=== PATIENT | female | born 1960 | race Caucasian/White ===

== ENCOUNTER 2019-10-16 12:19 | Inpatient (IN) ==
--- NOTE | 2019-10-16 13:02 | Diag Imaging Result Doc PS360 ---
EXAM: CHEST-1 VIEW 10/16/2019 HISTORY: sepsis r/o TECHNIQUE: Erect AP portable at 1253 COMMENT: The patient is rotated slightly to the right. There is some questionable opacity over the lower portion of the right upper lobe which is probably related to overlying skeletal elements. The Port-A-Cath which was present on 03/19/2011 is no longer present. IMPRESSION: Questionable atelectasis or pneumonia in the right upper lobe. Electronically signed by Cem Gaston 10/16/2019 1:00 PM
[2019-10-16 13:21] LABS: URINE SOURCE CATH
[2019-10-16 13:23] LABS: BASO# 0.01 X1000 (0.0-0.2); BASO% 0.1 % (0.0-0.8); EOS# 0.08 X1000 (0.0-0.7); EOS% 0.6 % (0.0-10.0); HEMATOCRIT 42.7 % (37.0-47.0); HEMOGLOBIN 13.1 g/dL (12.0-16.0); IMM GRAN# 0.03 X1000 (0.0-0.04); IMM GRAN% 0.2 % (0.0-0.5); LYMPH% 11.2 % (20.5-51.1); MCH 28.7 PG (27-31); MCHC 30.7 g/dL (33-37); MCV 93.4 FL (81-99); MONO# 0.77 X1000 (0.11-0.59); MONO% 5.8 % (1.7-9.3); MPV 9.8 FL (7.4-10.4); NEUT% 82.1 % (42.2-75.2); PLT 414 X1000 (130-400); RBC 4.57 XMIL (4.2-5.4); RDW 14.2 % (11.5-14.5); WBC 13.39 X1000 (4.8-10.8)
[2019-10-16 13:26] LABS: BILIRUBIN URINE NEGATIVE (NEGATIVE); BLOOD URINE NEGATIVE (NEGATIVE); COLOR YELLOW; GLUCOSE URINE NEGATIVE (NEGATIVE); KETONE URINE NEGATIVE (NEGATIVE); LEUKOCYTES URINE NEGATIVE (NEGATIVE); NITRITE URINE NEGATIVE (NEGATIVE); PROTEIN URINE TRACE mg/dL (NEGATIVE); SP GRAVITY URINE 1.023; TURBIDITY URINE HAZY (CLEAR); UROBILINOGEN URINE NORMAL (NORMAL)
[2019-10-16 13:32] LABS: UR EPITHELIAL CELLS <10 /HPF (<10); URINE BACTERIA NEGATIVE /HPF; URINE CASTS NONE SEEN; URINE CRYSTALS CA OXALATE PRESENT; URINE RBC <10 /HPF (<10); URINE WBC <10 /HPF (<10); URINE YEAST NONE SEEN
[2019-10-16 13:33] LABS: URINE SMALL ROUND CELLS NONE SEEN
[2019-10-16 13:35] LABS: INR 0.95; PROTIME 13.2 Seconds (11.0-16.0)
[2019-10-16 13:36] LABS: PTT 32.7 Seconds (22.3-41.8)
[2019-10-16 13:40] LABS: AGAP 15; ALBUMIN 4.3 g/dL (3.5-5.0); ALKALINE PHOSPHATASE 118 U/L (32-104); BUN 15 mg/dL (8-22); CALCIUM 9.7 mg/dL (8.8-10.2); CHLORIDE 104 mmol/L (98-107); CK PROFILE 48 U/L (24-173); COSMO 284; CREATININE 0.6 mg/dL (0.5-0.9); ESTIMATED GFR > 60; GLUCOSE 124 mg/dL (70-104); GOT 16 U/L (10-30); GPT 11 U/L (10-36); POTASSIUM 5.1 mmol/L (3.5-5.1); SODIUM 141 mmol/L (136-145); TCO2 22 mmol/L (25-35); TOTAL PROTEIN 6.7 g/dL (6.3-8.3)
[2019-10-16] MEDS ORDERED: ZITHROMAX PO ONE (14:20)
[2019-10-16] MEDS ORDERED: ROCEPHIN 1 GM in NS 50 ML IV ONE (14:20)
[2019-10-16] MEDS ORDERED: MORPHINE IV ONE (14:38)
[2019-10-16] MEDS ORDERED: ZOFRAN IV ONE (14:38)
--- NOTE | 2019-10-16 15:04 | Diag Imaging Result Doc PS360 ---
EXAM: CT ABD/PELVIS W/IV CONT ONLY - 10/16/2019 HISTORY: INCARCERATED HERNIA? TECHNIQUE: CT abdomen/pelvis with intravenous contrast COMPARISON: 10/03/2018 FINDINGS: There are postsurgical changes of distal colectomy with left midabdomen colostomy. There is a lower anterior abdominal wall hernia to the right of midline. This area now contains a small portion of transverse colon. The colon is mildly distended proximal and distal to the hernia There is scarring with apparent chronic small gas collection anterior to the lower sacrum/coccyx. There is apparent tethering of small bowel loops towards the presacral/coccygeal scarring. There is a segment of small bowel at the left upper pelvis which is nondistended, there is distended small bowel proximal and distal to this. The distal most small bowel appears to be nondistended. These findings suggest distal small bowel obstruction, possibly related to scarring/adhesions at the presacral/coccygeal region. There is no free air or substantial free fluid identified. There is mild fatty infiltration of liver. There is no focal liver lesion identified. There are no substantial abnormalities of the spleen, adrenal glands, pancreas identified. There are no calcified gallstones or pericholecystic inflammation identified. There are no substantially enlarged lymph nodes identified. The bilateral kidneys enhance homogeneously except for small cysts. There is no hydronephrosis. There is a suprapubic urinary bladder catheter. The urinary bladder lumen is largely collapsed. IMPRESSION: Postsurgical changes of distal colectomy, with left mid abdominal colostomy. Anterior abdominal wall hernia at the midabdomen at the right of midline. This contains a small portion of transverse colon. There is mild distention of colon proximal and distal to the hernia. Multiple dilated small bowel loops suspicious for distal small bowel obstruction. There is apparent tethering of small bowel loops at area of scarring anterior to the lower sacrum/coccyx. Although a discrete transition point is not apparent, the distal small bowel obstruction could relate to scarring/adhesions in this area. This exam was performed using automated exposure control, adjustment of mA or kV according to patient size, and/or use of iterative reconstruction technique. Electronically signed by Rene Hyde 10/16/2019 3:02 PM
--- NOTE | 2019-10-16 16:18 | PROVIDER DOCUMENTATION ---
This chart was entered by Robyn Harley Scribe, acting as scribe for Steven Olguin MD. HPI-Abdominal Pain/GI Problem - General Chief Complaint: Abdominal Pain Stated Complaint: abd pain Time Seen by Provider: 10/16/19 12:39 Source: patient, family, EMS (first response) Allergies/Adverse Reactions: Patient Allergies Allergy/AdvReac Type Severity Reaction Status Date / Time ether Allergy Severe hallucinati Verified 12/22/18 19:21 ons hydrocodone Allergy NAUSEA/VOMI Verified 12/22/18 19:21 [From Lorcet (hydrocodone)] TING hydromorphone [From Dilaudid] Allergy ITCHING Verified 12/22/18 19:21 silver sulfadiazine Allergy ITCHING Verified 12/22/18 19:21 [From Silvadene] sulfasalazine Allergy colitis Verified 12/22/18 19:21 etodolac AdvReac RENAL Verified 12/22/18 19:21 FAILURE methotrexate AdvReac elevated Verified 12/22/18 19:21 liver enzymes tolmetin AdvReac RENAL Verified 12/22/18 19:21 FAILURE Home Medications: Home Medication List Medication Instructions Recorded Confirmed Last Taken Type Acetaminophen/Diphenhydramine 2 each PO HS 10/17/17 04/24/19 10/22/18 18:30 H istory [Tylenol Pm] 2 Azathioprine 50 mg PO DAILY 10/17/17 04/24/19 10/23/18 07:00 History 100 Calcium Carbonate/Vit D3 [Caltrate 1 each PO DAILY 10/17/17 04/24/19 10/23/18 07:00 History 600 + D] 1 Duloxetine HCl 60 mg PO HS 10/17/17 04/24/19 10/22/18 19:00 History 60 Ibuprofen 2 tab PO PRN PRN 10/17/17 04/24/19 10/22/18 19:00 History 2 Montelukast [Singulair] 10 mg PO DAILY 10/17/17 04/24/19 10/23/18 07:00 History 10 Multivitamin with Minerals 1 each PO DAILY 10/17/17 04/24/19 10/22/18 19:00 History [Myvitalife] 1 Polyethylene Glycol 3350 [Miralax] 17 gm PO PRN PRN 10/17/17 04/24/1910/17/18 19:30 History 17 Sucralfate 1 gm PO PRN PRN 10/17/17 04/24/19 Unknown History Vitamin A 8,000 unit PO QAM 10/17/17 04/24/19 10/18/17 06:30 History 8000 Denosumab [Prolia] 60 mg SQ DIRECTED 10/21/18 04/24/19 Unknown History Hydrocodone/Acetaminophen [[place] 1 each PO PRN PRN 10/21/18 04/24/19 10/23/18 07:00 History 5-325 Tablet] 1 Oxybutynin [Ditropan] 5 mg PO BID 10/21/18 04/24/19 10/23/18 07:00 History 5 Vitamin B Complex 1 each PO DAILY 10/21/18 04/24/19 10/23/18 07:00 History 1 Bimatoprost [Lumigan] 1 drp BOTH EYES HS 04/24/19 04/24/19 Unknown History [place]-3 Fatty Acids/Fish Oil [Fish 1 cap PO DAILY 04/24/19 04/24/19 Unknown History Oil 1,000 mg Capsule] - History of Present Illness-ABD Nature of Presenting Problems: 59 yowf presents to the ed with c/o abdominal pain midline next to hernia. pt has nausea but denies vomiting and subjective fever. pt on exam is pleasant and appears to be in no distress. pt has hx of rectal cancer and has colostomy Abdominal Pain Onset Location: reports: periumbilical (midline) Pain Radiation: reports: no radiation Quality of Pain: reports: sharp Severity in ED: reports: moderate Onset/Duration: reports: this morning Timing: reports: still present, intermittent Activities at Onset: reports: light activity Exposure to sick contacts?: No Modifying Factors: worse with: palpation Associated Symptoms: reports: fever/chills (subjective), nausea. denies: back/neck pain, chest pain, cough, diarrhea, vomiting Last BM: other (colostomy) # of Vomiting Episodes: 0 Emesis Description: reports: none Bruising or Bleeding Gums?: No Similar Symptoms Previously?: Yes Recently seen or treated by another doctor?: No Review of Systems - Adult - REVIEW OF SYSTEMS - ADULT Constitutional: reports: see HPI, fever (subjective) Eyes: reports: no symptoms reported Ears, Nose, Mouth & Throat: reports: no symptoms reported Cardiovascular: denies: chest pain, palpitations Respiratory: denies: cough, pleurisy, shortness of breath, wheezing Gastrointestinal: reports: see HPI, abdominal pain, nausea. denies: diarrhea, vomiting Genitourinary: reports: see HPI, other (has cath) Musculoskeletal: denies: back pain, neck pain Integumentary: reports: no symptoms reported Neurological: reports: no symptoms reported Psychiatric: reports: no symptoms reported Endocrine: reports: no symptoms reported Hematologic/Lymphatic: reports: no symptoms reported Allergic/Immunologic: reports: no symptoms reported All Other Systems: Reviewed and Negative Past History - Adult - PAST MEDICAL HISTORY-ADULT Review of Records: reports: Old Records Reviewed, Nursing Assessment Review, Medications Reviewed, Social history reviewed & non-contributory. Major Childhood Illnesses: reports: denies history Cardiovascular: reports: denies history Respiratory: reports: denies history Gastrointestinal: reports: denies history Obstetrical/Gynecological: reports: denies history Genitourinary: reports: denies history Musculoskeletal: reports: arthritis, fibromyalgia Neurological: reports: denies history Psychiatric: reports: denies history Endocrine/Immune: reports: immunosuppression Other Conditions: reports: blindness - PRIOR SURGERIES/PROCEDURES Surgical/Procedure History: reports: other (colostomy) - IMMUNIZATION STATUS Childhood Immunizations: See Nurse Assessment Flu Vaccine: See Nurse Assessment - FAMILY HISTORY Family History: reviewed, not pertinent - SOCIAL HISTORY Smoking: quit greater than 1 year Substance Use: denies Living Situation: family Physical Exam-General - PHYSICAL EXAM-ADULT Initial Vital Signs Reviewed: Yes - CONSTITUTIONAL General Appearance: appears well, alert, no apparent distress (nontoxic in appearance), obese - EYES Eyes: pink conjunctivae, other (pt is blind pupils are dilated) - HEAD, EARS, NOSE, MOUTH & THROAT HENMT: moist mucous membranes - NECK Neck: non-tender, full range of motion, supple, normal inspection - RESPIRATORY Respiratory: chest non-tender, lungs clear, normal breath sounds - CARDIOVASCULAR Cardiovascular: normal peripheral pulses, regular rate, rhythm - CHEST (BREASTS) Chest/Breast: deferred - GASTROINTESTINAL (ABDOMEN) Abdominal Exam: normal bowel sounds, soft, tenderness (midline to umbilical region), hernia (rt to midline), other (colostomy left of midline). negative: distended, rigid, rebound - GENITOURINARY Female Genitalia/Pelvic Exam: deferred, other (has cath in place) Rectal Exam: deferred Hemoccult Exam: deferred - LYMPHATIC Lymphatic: no adenopathy - MUSCULOSKELETAL Back Exam: no CVA tenderness, no vertebral tenderness Extremity: normal range of motion, non-tender, normal inspection, normal capillary refill - SKIN Integumentary: normal color, normal turgor, warm/dry - NEUROLOGIC Neurologic: grossly normal - PSYCHIATRIC Psych/Mental Status: normal mood/affect, oriented x 3 Progress - PLAN OF CARE/RESULTS Progress/Plan/Lab Results: Vital Signs - 8 hr 10/16/19 12:21 Temperature 97.7 F Pulse Rate 97 H Respiratory Rate 22 Blood Pressure 152/76 O2 Sat by Pulse Oximetry 97 Orders Category Date Time Status Cardiac Monitoring DIRECTED Care 10/16/19 12:39 Active IV Insertion ORDERED Care 10/16/19 12:39 Completed Notify MD of + Sepsis Screen NOW Care 10/16/19 12:39 Active Notify Physician As Ordered Care 10/16/19 12:39 Active CHEST-1 VIEW [RAD] Stat Exams 10/16/19 12:39 Completed BLOOD CULTURE [BLDCUL] Stat Lab 10/16/19 12:48 Ordered CBC WITH DIFF [HEME] Stat Lab 10/16/19 12:48 Ordered CK PROFILE [SP CHEM] Stat Lab 10/16/19 12:48 Ordered COMPREHENSIVE METABOLIC PANEL [CHEM] Stat Lab 10/16/19 12:48 Ordered LACTATE, PLASMA [CHEM] Lab 10/16/19 12:53 Ordered LACTATE, PLASMA [CHEM] Lab 10/16/19 15:45 Uncollected LACTATE, PLASMA [CHEM] Lab 10/16/19 18:45 Uncollected PROTIME WITH INR [COAG] Stat Lab 10/16/19 12:48 Ordered PTT [COAG] Stat Lab 10/16/19 12:48 Ordered TROPONIN T HIGH SENSITIVITY Stat Lab 10/16/19 12:48 Ordered URINALYSIS W/POSS RFLX CULT [URINALYSIS] Stat Lab 10/16/19 12:54 Ordered Oxygen Device Stat Oth 10/16/19 12:39 Active Result Diagrams: 10/16/19 12:55 10/16/19 12:55 - REASSESSMENT Reassessment #1 Time Reassessed: 13:05 Status: unchanged ( at bedside) Reassessment #2 Time Reassessed: 15:40 Status: improving (pt is resting in bed) Reassessment #3 Time Reassessed: 16:15 Status: unchanged (ng ordered. lactate , cultures ,rocephin ordered. 1st case of total blidness due Cancer, Associated Retinopathy that i have seen.) - XRAY 1 XRAY: Bilateral XRAY Study: Chest Impression: See EMR Report (EXAM: CHEST-1 VIEW 10/16/2019 HISTORY: sepsis r/o TECHNIQUE: Erect AP portable at 1253 COMMENT: The patient is rotated slightly to the right. There is some questionable opacity over the lower portion of the right upper lobe which is probably related to overlying skeletal elements. The Port-A-Cath which was present on 03/19/2011 is no longer present. IMPRESSION: Questionable atelectasis or pneumonia in the right upper lobe. Electronically signed by Cem Gaston 10/16/2019 1:00 PM 10/16/19 1300 Interpreting Physician: Cem Gaston MD Dictated Date/Time: 10/16/19 1259 cc: Steven Olguin MD; None,PCP) - CT/MRI 1 CT Study: Abdomen, Pelvis Impression: See EMR Report (EXAM: CT ABD/PELVIS W/IV CONT ONLY - 10/16/2019 HISTORY: INCARCERATED HERNIA? TECHNIQUE: CT abdomen/pelvis with intravenous contrast COMPARISON: 10/03/2018 FINDINGS: There are postsurgical changes of distal colectomy with left midabdomen colostomy. There is a lower anterior abdominal wall hernia to the right of midline. This area now contains a small portion of transverse colon. The colon is mildly distended proximal and distal to the hernia There is scarring with apparent chronic small gas collection anterior to the lower sacrum/coccyx. There is apparent tethering of small bowel loops towards the presacral/coccygeal scarring. There is a segment of small bowel at the left upper pelvis which is nondistended, there is distended small bowel proximal and distal to this. The distal most small bowel appears to be nondistended. These findings suggest distal small bowel obstruction, possibly related to scarring/adhesions at the presacral/coccygeal region. There is no free air or substantial free fluid identified. There is mild fatty infiltration of liver. There is no focal liver lesion identified. There are no substantial abnormalities of the spleen, adrenal glands, pancreas identified. There are no calcified gallstones or pericholecystic inflammation identified. There are no substantially enlarged lymph nodes identified. The bilateral kidneys enhance homogeneously except for small cysts. There is no hydronephrosis . There is a suprapubic urinary bladder catheter. The urinary bladder lumen is largely collapsed. IMPRESSION: Postsurgical changes of distal colectomy, with left mid abdominal colostomy. Anterior abdominal wall hernia at the midabdomen at the right of midline. This contains a small portion of transverse colon. There is mild distention of colon proximal and distal to the hernia. Multiple dilated small bowel loops suspicious for distal small bowel obstruction. There is apparent tethering of small bowel loops at area of scarring anterior to the lower sacrum/coccyx. Although a discrete transition point is not apparent, the distal small bowel obstruction could relate to scarring/adhesions in this area. This exam was performed using automated exposure control, adjustment of mA or kV according to patient size, and/or use of iterative reconstruction technique. Electronically signed by Rene Hyde 10/16/2019 3:02 PM 10/16/19 1502 Interpreting Physician: Rene Hyde MD Dictated Date/Time: 10/16/19 1441 cc: Steven Olguin MD; None,PCP) - CONSULTS/PCP/HOSPITALIST Notification #1 *Consult/PCP/Hospitalist*: sx dr gomez Time Discussed: 15:57 Reason/Comments: phone consult #2 Consult: hospitalist dr fishman Time Discussed: 16:03 (dr fishman will handle admission at [facility]) Consult Disposition: Will see in ED, Admit Departure - Departure Date of Disposition Decision: 10/16/19 Time of Disposition Decision: 16:14 DIAGNOSIS: SBO (small bowel obstruction), Hernia of anterior abdominal wall, Pneumonia Disposition: ADMITTED INPATIENT 09 Certified Medical Emergency: Emergent Condition: Fair Referrals and Follow-Ups: None,PCP [Primary Care Provider] - - Critical Care Note This patient required my direct & personal management of CC.: Yes Total Time (mins): 32 Critical Care Statement: This patient required my direct personal management to treat or rule out processes, the absence of which, could potentiallly result in sudden, clinically significant life or limb threatening deterioration. Attestation - Physician/ DIPTI Attestation Patient care was provided by Advanced Practice Provider:: No The physician spent face to face time with patient:: Yes Advanced Practice Provider documentation review:: Supervising physician onsite and consulted in the evaluation and care of this patient. The physician did have a face to face encounter with the patient. This chart was documented by the indicated scribe, (Robyn Harley Scribe) and accurately reflects the services I performed and decisions made by me, Steven Olguin MD, as attested by the provider's signature.
[2019-10-16] MEDS: PROTONIX IV SCH (18:15)
[2019-10-16] MEDS: ZOFRAN IV PRN (20:26)
[2019-10-16] MEDS: ROCEPHIN 1 GM in NS 50 ML IV SCH (20:26)
--- NOTE | 2019-10-16 21:09 | Diag Imaging Result Doc PS360 ---
EXAM: CHEST-PORTABLE HISTORY: Pneumonia TECHNIQUE: Single view COMPARISON: 12:53 PM FINDINGS: The lungs are well expanded. The heart is not enlarged. The vessels are not distended. There are no infiltrates. No effusion identified. IMPRESSION: No definite abnormality. Follow-up PA and lateral recommended. Electronically signed by Bola Jon 10/16/2019 9:07 PM
[2019-10-16] MEDS: NS 1,000 ML IV SCH (22:32)
--- NOTE | 2019-10-17 01:04 | HISTORY AND PHYSICAL ---
PRIMARY CARE PHYSICIAN: Dr. Rey Ramirez. CHIEF COMPLAINT: Abdominal pain. HISTORY OF PRESENT ILLNESS: Ms Traylor is a 59-year-old, female with past medical history of rectal cancer status post colostomy and anal fissure repair, vaginal- anal fistula with suprapubic placement, cancer associated retinopathy syndrome, hypothyroidism, GERD, RA, fibromyalgia, skin cancer, anemia. The patient does present to the hospital today with complaints of mid abdominal pain, weakness, nausea, lethargy, malaise, chills, fever of 99 degrees, cough, congestion, dizziness, headache, rhinorrhea and decreased intake for the past few days. The patient states she did have a bladder infection greater than a week ago. She was being treated with Cipro by her rolling chair pusher, Dr. Rey Ramirez. He did change it to Macrobid and she did complete her dosage of her medication. She also did have some dental work where she had some of her teeth removed and was treated with Keflex. The patient does deny any weight change, excessive thirst, chest pain, palpitations, orthopnea, PND, leg edema, dyspnea, vomiting, melena, hematopoiesis, diarrhea or constipation, dysuria, hematuria, vertigo, syncope, or any other pertinent symptoms at this time. REVIEW OF SYSTEMS: A 10-point review of systems has been obtained and all are negative, except what is stated above in HPI. PAST MEDICAL HISTORY: 1. Rectal cancer with colostomy and anal fissure repair. 2. Vaginal-anal fistula with suprapubic cath placement. 3. Anemia. 4. Cancerous associated retinopathy. 5. Hypothyroidism. 6. GERD. 7. Fibromyalgia. 8. Rheumatoid arthritis. 9. Skin cancer. PAST SURGICAL HISTORY: Tonsillectomy, hysterectomy, tubal ligation, cataracts, anal fissure repair, colostomy placement, suprapubic placement, hernia repair, varicose vein surgery, fistula repair. FAMILY HISTORY: Mom had small-cell lung cancer and is . She also had diabetes, hypothyroidism, glaucoma and cataracts. Sister has hypothyroidism. 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 She does have to have a caregiver live with her. She quit smoking 3 years ago. She quit drinking greater than 40 years ago. She denies any illicit drug use. ALLERGIES: Ether, hydrocodone, hydromorphone, Silvadene, sulfasalazine, etodolac, methotrexate, tolmetin. HOME MEDICATIONS: Home medication reconciliation has not been performed in the computer. PHYSICAL EXAMINATION: VITAL SIGNS: Temperature 97.7 degrees, pulse rate 97, respiratory rate 22, blood pressure 152/76, O2 saturation 97% on room air. GENERAL: This is a 59-year-old female. She is lying in ER stretcher. She is well nourished, well developed. She is in no acute distress. HEENT: Atraumatic, normocephalic. Pupils are equal. Mucous membranes are dry. NECK: Supple. No lymphadenopathy. Trachea is midline. No JVD. CARDIOVASCULAR: Regular rate and rhythm. No murmurs, gallops, or rubs appreciated. RESPIRATORY: Lung sounds clear. Equal chest excursion. Respirations are nonlabored. No accessory muscle usage. ABDOMEN: Soft. It is tender to palpation. It is nondistended. Bowel sounds present x4. GENITOURINARY: There is a suprapubic catheter present. It is draining clear yellow urine output. NEUROLOGIC: Patient is awake, alert, oriented, able to follow all commands appropriately. MUSCULOSKELETAL: Full distal strength noted. No abnormalities, no deformities. EXTREMITIES: No clubbing, no cyanosis, no edema. DP and PT pulses are present and palpable. SKIN: Warm, dry, and intact. No rashes. No bruises. No diaphoresis. LABS/DIAGNOSTICS: White blood cell count 13.39, hemoglobin 13.1, hematocrit 42.7, platelet count 414,000. PT 13.2, INR 0.95, PTT 32.7. Sodium 141, potassium 5.1, CO2 of 22, anion gap 15, BUN 15, creatinine 0.6, estimated GFR is greater than 60. Glucose 124. Troponin T 9. Plasma lactate 0.6. Urinalysis essentially negative. Chest x-ray shows pneumonia in the right left upper lobe. CT of the abdomen and pelvis shows an anterior abdominal wall hernia at the mid abdomen at the right of midline, this contains a small portion of transverse colon. There is mild distention of the colon proximal and distal to the hernia. Multiple dilated small bowel loops suspicious for distal small bowel obstruction. There is an apparent of small bowel loops at area of scarring anterior to the lower sacrum and coccyx, although a discrete transition point is not apparent, the distal small- bowel obstruction can relate to scarring adhesions in this area. ASSESSMENT AND PLAN: 1. Right upper lobe pneumonia. We are going to transfer the patient to [facility]. We will admit her to the medical floor. We will place her on IV fluid hydration. We will place her on IV Rocephin and IV azithromycin. Blood cultures have been obtained. We will await those results. We will repeat chest x-ray in the morning. 2. Small-bowel obstruction with incarcerated hernia. We have consulted surgery. Dr. Fuchs was notified and spoke to in the ER. He will see the patient on the medical floor at [facility]. He recommended placing an NG tube to low intermittent. I have ordered this. We will hold the patient NPO. I will provide her with IV Protonix 40 mg IV q.24 hours. I will provide her with IV fluid hydration. I have ordered IV Zofran for her nausea. I will place her on strict bed rest. Do vital signs q.4 hours. 3. Rectal cancer with colostomy and suprapubic catheterization from fistula. Aware. 4. Cancer-associated retinopathy syndrome. Aware. 5. Hyperthyroidism. We will resume home medications when appropriate. 6. Fibromyalgia. Will resume home medications when able. 7. Rheumatoid arthritis, aware. 8. Gastroesophageal reflux disease. I have ordered Protonix IV q.24 hours. 9. Deep venous thrombosis prophylaxis. I have ordered SCDs. Dictated by BELGICA Neely for Valentino Ruiz MD cc: MD Rey Mccormack MD Gregory S. Cheatham, MD Jason R. Seale, MD Clement Okinedo, MD MTDD
--- NOTE | 2019-10-17 03:58 | HISTORY AND PHYSICAL ---
Patient presented to the hospital with abdominal pain. She does have a history of cancer. CT demonstrates multiple dilated loops of bowel suspicious for a distal small-bowel obstruction. Chest x-ray with likely pneumonia in the right upper lobe. We are going to admit to the hospital, place her on antibiotics. General Surgery has been notified. I would prefer her to have an NG tube, but the patient so far has refused this. We will continue to keep her N.P.O.,transfer her to [facility], consult Surgery and will follow. cc: Valentino Ruiz MD
[2019-10-17] MEDS: ZOFRAN IV PRN ×2 (05:45→12:30)
[2019-10-17] MEDS ORDERED: OFIRMEV 1000 MG/ISOTONIC SOLN 1,000 MG/100 ML BOTTLE IV ONE (05:56)
[2019-10-17 06:37] LABS: BASO# 0.01 X1000 (0.0-0.2); BASO% 0.1 % (0.0-0.8); EOS# 0.04 X1000 (0.0-0.7); EOS% 0.4 % (0.0-10.0); HEMATOCRIT 42.4 % (37.0-47.0); HEMOGLOBIN 12.9 g/dL (12.0-16.0); IMM GRAN# 0.02 X1000 (0.0-0.04); IMM GRAN% 0.2 % (0.0-0.5); LYMPH# 1.95 X1000 (1.2-3.4); LYMPH% 20.9 % (20.5-51.1); MCH 28.7 PG (27-31); MCHC 30.4 g/dL (33-37); MCV 94.4 FL (81-99); MONO# 0.92 X1000 (0.11-0.59); MONO% 9.8 % (1.7-9.3); MPV 9.8 FL (7.4-10.4); NEUT# 6.41 X1000 (1.4-6.5); NEUT% 68.6 % (42.2-75.2); PLT 419 X1000 (130-400); RBC 4.49 XMIL (4.2-5.4); RDW 14.3 % (11.5-14.5); WBC 9.35 X1000 (4.8-10.8)
[2019-10-17 07:03] LABS: AGAP 11; BUN 14 mg/dL (8-22); CALCIUM 9.2 mg/dL (8.8-10.2); CHLORIDE 105 mmol/L (98-107); COSMO 278; CREATININE 0.6 mg/dL (0.5-0.9); ESTIMATED GFR > 60; GLUCOSE 104 mg/dL (70-104); POTASSIUM 4.5 mmol/L (3.5-5.1); SODIUM 139 mmol/L (136-145); TCO2 23 mmol/L (25-35)
[2019-10-17] MEDS: NS 1,000 ML IV SCH (07:54)
[2019-10-17] MEDS: ZITHROMAX 500 MG/NS 500 MG/250 ML IVPB IV SCH (11:28)
[2019-10-17] MEDS ORDERED: OFIRMEV 1000 MG/ISOTONIC SOLN 1,000 MG/100 ML BOTTLE IV PRN (12:39)
[2019-10-17] MEDS ORDERED: SODIUM CHLORIDE 0.9% INJ PRN (12:40)
[2019-10-17] MEDS ORDERED: PHENERGAN IV PRN (12:40)
[2019-10-17] MEDS ORDERED: ATIVAN IV ONE (13:12)
[2019-10-17] MEDS: BENADRYL IV PRN (14:51)
[2019-10-17] MEDS: ROCEPHIN 1 GM in NS 50 ML IV SCH (14:52)
--- NOTE | 2019-10-17 16:09 | Diag Imaging Result Doc PS360 ---
CHEST-PORTABLE - 10/17/2019 INDICATION: NG tube placement COMPARISON: 10/16/2019 FINDINGS: There is a nasogastric tube in good position in the stomach. The lungs are fairly clear and the heart size is normal. IMPRESSION: Nasogastric tube in good position the stomach. Electronically signed by Earl Mueller 10/17/2019 4:07 PM
[2019-10-17] MEDS: PROTONIX IV SCH (18:19)
[2019-10-17] MEDS: SODIUM CHLORIDE 0.9% INJ SCH (18:19)
--- NOTE | 2019-10-17 20:00 | PROGRESS NOTE ---
DATE: 10/17/2019 SUBJECTIVE: This morning Ms. Traylor refers to be doing well. She continues saying she has been extremely nauseated, and she also has abdominal discomfort. Per the nursing account, she has vomited multiple times, and that they all look fecaloid. During my encounter, Dr. Lima, the surgeon, actually joined me, and both of us evaluated Ms. Traylor. OBJECTIVE: Vital signs: Blood pressure is 157/86, pulse 95, respirations 16, temperature 97.4. General: Ms. Traylor is a 59-year-old elderly female. She is in bed in no distress. HEENT: Mucosa is pink, slightly dry. Anicteric. Acyanotic. Neck: Supple. No JVD. Chest: Good air entry bilaterally. There are no crepitations or rhonchi. Cardiovascular: Regular rate and rhythm. GI: Abdomen is soft. There is some tenderness in the mid epigastrium where there is a hernia defect. There is also an infraumbilical surgical scar from previous surgery. There is a left-sided colostomy in the back which has fecal material. According to Ms. Traylor, the colostomy output has remarkably reduced. Bowel sounds are present and slightly hyperactive. Extremities: No pedal edema. 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 There is no focal deficit. The patient is bilaterally legally blind. : There is a suprapubic catheter noted. LABORATORY DATA: WBCs 9.35, hemoglobin 12.9, platelet count of 419. Chemistry is also reviewed and is for the most part unremarkable. So far, blood cultures are pending. DIAGNOSTIC STUDIES: 1. A chest x-ray: Questionable atelectasis or pneumonia in the right lower lobe. 2. A CT scan of the abdomen and pelvis showed an anterior abdominal wall hernia at the mid abdomen at the right of the midline that contains a portion of transverse colon. There are multiple dilated small bowel loops suspicious of distal small-bowel obstruction. ASSESSMENT: 1. Intractable nausea and vomiting secondary to small bowel obstruction. 2. Mid abdomen incarcerated hernia. This seems to be easily reducible. 3. Right lower lobe atelectasis versus pneumonia. Patient has been started on antimicrobial coverage. 4. Clinical volume depletion. Will continue with fluids. 5. History of rectal cancer with multiple complications in the past. 6. Status post suprapubic catheterization. 7. Legal bilateral blindness, presumably associated with cancer treatment. 8. History of rheumatoid arthritis. The patient is on azathioprine and pulse doses of steroids. 9. Hypothyroidism. Will continue with levothyroxine. cc: Kenneth Jeffers MD MTDD
[2019-10-17] MEDS: MORPHINE IV PRN (21:20)
--- NOTE | 2019-10-17 22:24 | GENERAL SURGERY CONSULTATION ---
DATE: 10/17/2019 REASON FOR CONSULTATION: Bowel obstruction. CHIEF COMPLAINT: Nausea, vomiting, abdominal discomfort. HISTORY OF PRESENT ILLNESS: A 59-year-old female with complicated history. 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 Apparently, she underwent some form of transanal excision at an outside hospital that resulted in rectal and anal necrosis, that resulted in abdominoperineal resection and plastic surgery closure of the perineal wound. She has had a chronic longstanding wound related to this. 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 She has also had cancer associated blindness of late. She has rheumatoid arthritis as well. She is on immunosuppressant. In the last 24 hours, or really last week, apparently she has developed colicky abdominal discomfort, nausea, and vomiting that became more severe with apparent feculent emesis, and she came into the ER where a CT scan was obtained that showed a midline transverse colon containing ventral hernia, as well as a transition point in the small bowel down toward the pelvis. She was admitted. There has been some difficulty placing a nasogastric tube. MEDICAL HISTORY: As noted in her HPI, with addition of tobacco use, hypertension, and I believe diabetes. SURGICAL HISTORY: As noted in her history, with the addition of bilateral lower extremity RFA. SOCIAL HISTORY: She does smoke. Drinks occasionally. She has attentive family. FAMILY HISTORY: Reviewed and noncontributory. REVIEW OF SYSTEMS: A 10 point review of systems is negative other than what is mentioned in HPI. PHYSICAL EXAMINATION: Vital Signs: She is afebrile. Pulse in the 90s. Blood pressure 157/86. Oxygen saturation 94%. General: She is alert, in no acute distress. HEENT: No scleral icterus. No cervical mass. Cardiovascular: Normal rate. Pulmonary: No increased work of breathing. Abdomen: Soft. There is a reducible incisional hernia with approximately a 3 to 4 cm palpable defect, with no incarcerated viscera and no skin changes. Left lower quadrant ostomy is in place. Integument: Warm and dry. Psychiatric: Appropriate affect. Neurologic: She does have blindness. Peripheral vascular: Trace lower extremity edema. LABORATORY DATA: White count is 9, hematocrit is 42. Creatinine is 0.6. I reviewed her LFTs. They are normal. Lactate was normal. Urinalysis shows trace protein, but no nitrites. I have reviewed her chest x-ray. It shows possible pneumonia, and a CT scan. ASSESSMENT AND PLAN: A 59-year-old female with bowel obstruction. This seems to be unrelated to her hernia, which is reducible and colon containing. Her ostomy is functioning. I have recommended nasogastric tube decompression given her ongoing emesis, and serial abdominal examinations. Will follow along. I have recommended abdominal binder with pressure over the hernia, although this is not the source of obstruction and is reducible. She is recently status post high-dose steroids with plans to start back later this summer for her blindness. cc: Zach Lima MD
[2019-10-18] MEDS: MORPHINE IV PRN ×3 (01:48→21:59)
[2019-10-18 07:35] LABS: HEMATOCRIT 38.4 % (37.0-47.0); HEMOGLOBIN 11.9 g/dL (12.0-16.0); MCH 29.6 PG (27-31); MCV 95.5 FL (81-99); RBC 4.02 XMIL (4.2-5.4); RDW 14.7 % (11.5-14.5); WBC 6.92 X1000 (4.8-10.8)
[2019-10-18 08:10] LABS: AGAP 14; ALBUMIN 3.4 g/dL (3.5-5.0); BUN 15 mg/dL (8-22); CALCIUM 9.3 mg/dL (8.8-10.2); CHLORIDE 104 mmol/L (98-107); COSMO 281; CREATININE 0.7 mg/dL (0.5-0.9); ESTIMATED GFR > 60; GLUCOSE 75 mg/dL (70-104); PHOSPHORUS 2.6 mg/dL (2.7-4.5); POTASSIUM 3.9 mmol/L (3.5-5.1); SODIUM 141 mmol/L (136-145); TCO2 23 mmol/L (25-35)
--- NOTE | 2019-10-18 09:34 | Diag Imaging Result Doc PS360 ---
KUB ABDOMEN - 10/18/2019 INDICATION: SBO COMPARISON: None FINDINGS: There appears to be a nasogastric tube with the tip in the stomach. There is a nonobstructive bowel gas pattern. No free air or abnormal calcifications. IMPRESSION: Negative exam. Electronically signed by Earl Mueller 10/18/2019 9:31 AM
[2019-10-18] MEDS: ZITHROMAX 500 MG/NS 500 MG/250 ML IVPB IV SCH (10:46)
--- NOTE | 2019-10-18 12:46 | PROGRESS NOTE ---
DATE: 10/18/2019 Ms. Traylor is a 59-year-old white female who has a complicated medical history. She has a known ventral hernia which is easily reducible and she is wearing an abdominal binder. She has a suprapubic tube and she has a left-sided colostomy. She has an NG tube in place because of small- bowel obstruction. We hope that this small bowel obstruction resolves on its own. Her heart rate is 90, blood pressure 113/47, O2 saturation 96%. She is afebrile. She is blind. She has IV fluids and antibiotics going. Her white blood cell count is normal. Hematocrit stable at 38%. Her BUN and creatinine are 15 and 0.7. PLAN: Continue NG suction and allow her to move around in the room despite her multiple tubes. cc: Rhea Harley MD
--- NOTE | 2019-10-18 13:07 | PROGRESS NOTE ---
DATE: 10/18/2019 SUBJECTIVE: This morning Ms. Traylor refers to be doing a whole lot better. She said she feels slightly stronger. NG tube is still in place. Ms. Harley refers that the ostomy has had no output. OBJECTIVE: Vital signs: Blood pressure is 113/47, pulse of 90, respirations 16, temperature 98.5 degrees. General: Ms. Traylor is a 59-year-old female. She is in bed. No distress. HEENT: Mucosa is pink and moist. Anicteric. Acyanotic. Neck: Supple. Chest: Good air entry bilateral. There was no crepitations. No rhonchi. Cardiovascular: Regular rate and rhythm. No murmurs, no rubs, no gallops. GI: Abdomen is minimally tender in the epigastrium, but there is a mild hernia defect, which is reducible. There is an infraumbilical surgical scar from previous surgery and the left side colostomy which the bag is empty. 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 The patient is also legally blind. LABORATORY DATA: CBC is normal. Chemistry is within normal range. So far blood cultures have been 48 hours negative. A KUB this morning shows nonobstructive bowel gas pattern. NG tube in place. ASSESSMENT: 1. Intractable nausea and vomiting secondary to small bowel obstruction. This is improved with nasogastric tube. KUB this morning shows nonobstructive pattern. 2. Mid abdomen incarcerated hernia. Easily reducible. 3. Right lower lobe atelectasis versus pneumonia. The patient is on antimicrobial coverage. 4. Clinical volume depletion. Improving. 5. History of rectal cancer with multiple complications in the past. 6. Status post suprapubic catheterization. 7. Bilateral blindness. Noted. 8. History of rheumatoid arthritis. The patient is on azathioprine and pulses of steroid therapy. 9. Hypothyroidism. The patient is on levothyroxine. 10. Constipation. We will start the patient on bowel regimen. PLAN: In general, I think Ms. Traylor is doing well. She feels a whole lot better abdominal pain has significantly subsided. KUB this morning shows nonobstructive pattern. She seems to be remarkably constipated. We are going to put her on MiraLAX today to see if she is able to tolerate that without any symptoms. cc: Kenneth Jeffers MD
[2019-10-18] MEDS: MIRALAX PO SCH (13:41)
[2019-10-18] MEDS: ZOFRAN IV PRN (14:21)
[2019-10-18] MEDS: ROCEPHIN 1 GM in NS 50 ML IV SCH (14:22)
[2019-10-18] MEDS: NS 1,000 ML IV SCH (16:27)
[2019-10-18] MEDS: SODIUM CHLORIDE 0.9% INJ SCH (20:56)
[2019-10-18] MEDS: PROTONIX IV SCH (20:56)
[2019-10-19] MEDS: NS 1,000 ML IV SCH ×2 (00:46→12:57)
[2019-10-19] MEDS: BENADRYL IV PRN (00:46)
[2019-10-19] MEDS: MORPHINE IV PRN ×4 (04:36→22:15)
[2019-10-19] MEDS: ZITHROMAX 500 MG/NS 500 MG/250 ML IVPB IV SCH (09:19)
[2019-10-19] MEDS: MIRALAX PO SCH (09:20)
--- NOTE | 2019-10-19 11:10 | PROGRESS NOTE ---
DATE: 10/19/2019 SUBJECTIVE: This morning Ms. Traylor refers to be doing a lot better. She has very minimum abdominal pain. She also says she has had adequate bowel movement despite this has not been documented in her chart. NG tube output is in total has been 900. OBJECTIVELY: Vital signs: Blood pressure is 137/50, pulse of 82 respiration is 16, temperature is 97.7 degrees. General: Ms. Traylor is a 59-year-old female. She is in bed no distress. HEENT: Mucosa is pink and moist. Anicteric. Acyanotic. Neck: Supple. Chest: Good air entry bilaterally. There was no crepitations no rhonchi. Cardiovascular: Regular rate and rhythm. No murmurs, no rubs, no gallops. GI: Abdomen soft. There is no tenderness. There is a hernia defect in the epigastric region which is reduced. There is an infraumbilical surgical scar from previous laparoscopic surgery. There is a left colostomy bag which is currently empty according to Ms. Traylor. This has just been emptied. There is a suprapubic catheter in place. 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 Follows commands. She is bilaterally blind. LABORATORY DATA: No laboratory data for today. XRAY DATA: No imaging studies for today. ASSESSMENT: 1. Intractable nausea vomiting on presentation secondary to partial small-bowel obstruction, improved with conservative management. We wait on surgery to give further recommendation in terms of the NG tube and nutrition going forward. 2. Mid abdomen incarcerated hernia on presentation, resolved. 3. Right lower lobe atelectasis versus pneumonia. Patient is on antimicrobial coverage. 4. Clinical volume depletion improved. 5. History of rectal cancer with multiple complications in the past, aware. 6. Status post suprapubic catheterization. 7. Bilateral blindness. 8. History of rheumatoid arthritis. Patient is on azathioprine and pulse dose of steroid therapy. 9. Constipation. Will continue with bowel regimen. 10. Hypothyroidism. Patient is on levothyroxine. PLAN: So I think the is partial small bowel obstruction seems to have resolved. I think at this point, we can potentially clamp the NG tube for about 6 hours and aspirate the contents afterwards if it is if it is less than 250, I think we can potentially start her on an on clear liquids and get NG tube review. We will however wait for surgery to see her today and get their recommendations. cc: Kenneth Jeffers MD
[2019-10-19] MEDS: ROCEPHIN 1 GM in NS 50 ML IV SCH ×2 (12:57→18:04)
[2019-10-19] MEDS: PROTONIX IV SCH (18:00)
[2019-10-19] MEDS: SODIUM CHLORIDE 0.9% INJ SCH (18:01)
[2019-10-20] MEDS: BENADRYL IV PRN (02:07)
[2019-10-20 06:55] LABS: HEMATOCRIT 36.9 % (37.0-47.0); HEMOGLOBIN 11.3 g/dL (12.0-16.0); MCH 28.2 PG (27-31); MCHC 30.6 g/dL (33-37); MPV 9.9 FL (7.4-10.4); RBC 4.01 XMIL (4.2-5.4); RDW 13.9 % (11.5-14.5); WBC 6.32 X1000 (4.8-10.8)
[2019-10-20] MEDS: MORPHINE IV PRN ×3 (06:55→21:36)
[2019-10-20 07:30] LABS: AGAP 15; ALBUMIN 3.4 g/dL (3.5-5.0); BUN 7 mg/dL (8-22); CALCIUM 9.2 mg/dL (8.8-10.2); CHLORIDE 103 mmol/L (98-107); COSMO 278; CREATININE 0.6 mg/dL (0.5-0.9); ESTIMATED GFR > 60; GLUCOSE 76 mg/dL (70-104); PHOSPHORUS 2.7 mg/dL (2.7-4.5); POTASSIUM 3.7 mmol/L (3.5-5.1); SODIUM 141 mmol/L (136-145); TCO2 23 mmol/L (25-35)
--- NOTE | 2019-10-20 07:38 | Diag Imaging Result Doc PS360 ---
EXAM: CHEST-PORTABLE INDICATION: dyspnea TECHNIQUE: One view COMPARISON: 10/17/2019 FINDINGS: There has been interval removal of the NG tube. The patient is significantly rotated toward the right. There has been development of mild subsegmental atelectasis at the right midlung zone. Otherwise, no new consolidation is identified. Cardiac silhouette is stable. IMPRESSION: Development of mild subsegmental atelectasis in the right midlung zone. Stable chest, otherwise. Electronically signed by Nestor Ma 10/20/2019 7:36 AM
--- NOTE | 2019-10-20 07:39 | Diag Imaging Result Doc PS360 ---
EXAM: KUB ABDOMEN INDICATION: SBO TECHNIQUE: One view COMPARISON: 10/18/2019 FINDINGS: There is a loop of small bowel in the lower abdomen and pelvis that is mildly gas distended. It is nonspecific. Consider ileus versus partial obstruction. No large volume free abdominal gas is appreciated. The abdomen is essentially stable, otherwise. IMPRESSION: Mild gaseous distention of a loop of small bowel in the lower abdomen and pelvis as described. Electronically signed by Nestor Ma 10/20/2019 7:37 AM
[2019-10-20] MEDS: MIRALAX PO SCH (08:37)
[2019-10-20] MEDS: NS 1,000 ML IV SCH ×2 (08:38→20:03)
[2019-10-20] MEDS: ZITHROMAX 500 MG/NS 500 MG/250 ML IVPB IV SCH (08:38)
--- NOTE | 2019-10-20 11:31 | GENERAL SURGERY PROGRESS NOTE ---
DATE: 10/20/2019 SUBJECTIVE: Her ostomy is functioning. She feels a little better. No more vomiting. NG tube is out. She is tolerating clear liquids. No fevers. OBJECTIVE: Vital Signs: Pulse 78, blood pressure 114/62. General: She is alert. Cardiovascular: Normal rate. Abdomen: Soft, nontender. There is some stool in her ostomy bag. Hernia is reduced. LABORATORY DATA: I reviewed her labs. White count is normal. Creatinine 0.6. ASSESSMENT AND PLAN: This is a 59-year-old female with resolving bowel obstruction. Will keep her on clear liquids today. She did get a little full with these earlier, and plan to advance her diet to soft tomorrow, and maybe let her go home tomorrow. cc: Zach Lima MD
[2019-10-20] MEDS: ROCEPHIN 1 GM in NS 50 ML IV SCH (16:44)
[2019-10-20] MEDS: SODIUM CHLORIDE 0.9% INJ SCH (18:08)
[2019-10-20] MEDS: PROTONIX IV SCH (18:08)
[2019-10-21] MEDS: NS 1,000 ML IV SCH (06:22)
--- NOTE | 2019-10-21 07:52 | Diag Imaging Result Doc PS360 ---
KUB ABDOMEN - 10/21/2019 INDICATION: SBO COMPARISON: 10/20/2019 FINDINGS: There is a nonobstructive bowel gas pattern. No free air or abdominal calcifications. No constipation. IMPRESSION: No acute disease. Electronically signed by Earl Mueller 10/21/2019 7:50 AM
[2019-10-21] MEDS: ZITHROMAX 500 MG/NS 500 MG/250 ML IVPB IV SCH (12:03)
[2019-10-21] MEDS: MIRALAX PO SCH (12:03)
--- NOTE | 2019-10-21 13:25 | GENERAL SURGERY PROGRESS NOTE ---
DATE: 10/21/2019 SUBJECTIVE: She is having bowel function. She is tolerating a diet. No pain. No fevers. No tachycardia. OBJECTIVE: Blood pressure 130/62. General: She is alert. Her abdomen is soft. Ostomy has an appliance in place with stool in the bag. I reviewed her labs. Nothing new today. ASSESSMENT AND PLAN: A 59-year-old female with a resolved bowel obstruction. She has scheduled followup with me. Otherwise, I have encouraged her to continue a low residual diet and will call with any worsening symptoms. cc: Zach Lima MD
[2019-10-21 15:26] VITALS: BP 125/60
--- NOTE | 2019-10-21 23:47 | DISCHARGE SUMMARY ---
ADMISSION DATE: 10/16/2019 DISCHARGE DATE: 10/21/2019 DISPOSITION: Home. FOLLOWUP: 1. Dr. Hannon. 2. Dr. Lima. CONSULTATION DURING THIS ADMISSION: Surgery was consulted. The patient was seen by Dr. Lima. INVASIVE PROCEDURES DONE DURING THIS ADMISSION: None. IMAGING STUDIES OF SIGNIFICANCE: 1. A chest x-ray did show questionable atelectasis or pneumonia in the right upper lobe. 2. A CT scan of the abdomen and pelvis showed postsurgical changes. Distal colectomy, some constipation. 3. Multiple KUBs afterwards showed improvement. ADMISSION DIAGNOSES: 1. Right upper lobe pneumonia. 2. Small bowel obstruction with incarcerated hernia. 3. Rectal cancer with colostomy and suprapubic catheterization from fistula. DIAGNOSES AT THE TIME OF DISCHARGE: 1. Intractable nausea and vomiting on presentation secondary to partial small-bowel obstruction, improved. 2. Mid abdomen incarcerated hernia on presentation, resolved. 3. Right upper lobe atelectasis versus pneumonia. 4. Clinical volume depletion improved. 5. History of rectal cancer with multiple complications in the past, aware. 6. Status post suprapubic catheterization. 7. Bilateral blindness. 8. History of rheumatoid arthritis. Patient is on azathioprine and pulse doses of steroids. 9. Constipation, improved. 10. Hypothyroidism. The patient is on levothyroxine. DISCHARGE MEDICATIONS: 1. Multivitamins. 2. Azathioprine 50 mg p.o. daily. 3. Duloxetine 60 mg p.o. at bedtime. 4. Montelukast 10 mg p.o. daily. 5. Vitamin A. 6. [place]. 7. Levothyroxine 75 mcg p.o. daily. Robaxin 500 three times per day. 1. Levofloxacin 500 mg p.o. daily for 5 more days. 2. Colace, 1 tablet b.i.d. 3. MiraLAX 17 g p.o. p.r.n. for constipation. PRESENTING COMPLAINT: Abdominal pain. HISTORY OF PRESENTING COMPLAINT: Ms Traylor is a 59-year-old female who is known to have multiple, multiple comorbidities including rectal cancer status post colectomy with endovaginal fistula which got repaired and the patient has a suprapubic catheter, came to the emergency room because of abdominal pain. She was evaluated and there was concern that she could have a partial small-bowel obstruction/constipation. Ms Traylor was admitted to the surgical floor for management. HOSPITAL COURSE: Ms Traylor was initially kept NPO. An NG tube was put in place. That drained a lot of fecal material. Subsequently, she felt a lot better. Surgery evaluated her and they recommended just to do conservative management. There was a mid abdomen hernia which they thought was incarcerated, but it was easily reducible after the upper GI decompression. Gradually Ms Traylor's clinical picture continued to improve. The NG tube was removed. Over the weekend she was started on clears, which she tolerated very well, and she started making adequate output in her ostomy. Today she has tolerated a soft diet and we think Ms. Traylor has significantly improved and is asymptomatic so we will discharge her. She will need to follow up with Dr. Lima, as well as Dr. Hannon, the urologist, about a suprapubic catheter. All the discharge instructions have been discussed with Ms. Traylor. She voiced understanding. TIME SPENT FOR DISCHARGE: 36 minutes. cc: Kenneth Jeffers MD
== END 2019-10-21 15:50 | disposition home health service (06) | DRG 388 ==
LOC: P.ED 12:19 → 4N 18:32 → SUATTDRO 18:32
PROVIDERS: ATTEND Internal Medicine

== ENCOUNTER 2019-12-03 11:44 | Inpatient (IN) ==
[2019-12-03] MEDS ORDERED: NS 1,000 ML IV ONE (12:20)
[2019-12-03] MEDS ORDERED: ZOFRAN IV ONE (12:20)
[2019-12-03] MEDS ORDERED: MORPHINE IV ONE ×2 (12:20→14:17)
[2019-12-03] MEDS ORDERED: NORFLEX IV ONE (12:20)
--- NOTE | 2019-12-03 12:39 | Diag Imaging Result Doc PS360 ---
EXAM: CHEST-PORTABLE HISTORY: hip fall TECHNIQUE: Single view COMPARISON: 10/20/2019 FINDINGS: The lungs are well expanded. No contusion. No pneumothorax. The heart is not enlarged. The vessels are not distended. There are no infiltrates. No effusion identified. IMPRESSION: Negative exam. Electronically signed by Bola Jon 12/03/2019 12:37 PM
--- NOTE | 2019-12-03 13:05 | Diag Imaging Result Doc PS360 ---
EXAM: CT LUMBAR SPINE W/O CONTRAST 12/03/2019 HISTORY: fall TECHNIQUE: This exam was performed using automated exposure control, adjustment of mA or kV according to patient size, and/or use of iterative reconstruction technique. COMMENT: There are bilateral acute sacral insufficiency fractures. There is no evidence of fracture or subluxation in the lumbar spine. There is facet arthropathy with vacuum phenomenon at L4-5 on the right. There is minimal anterolisthesis of L4 on L5. No oblique due to facet arthropathy. IMPRESSION: Bilateral sacral insufficiency fractures. Electronically signed by Cme Gaston 12/03/2019 1:02 PM
--- NOTE | 2019-12-03 13:08 | Diag Imaging Result Doc PS360 ---
EXAM: CT PELVIS W/O CONTRAST 12/03/2019 HISTORY: fall, continued right pelvis/hip pain TECHNIQUE: This exam was performed using automated exposure control, adjustment of mA or kV according to patient size, and/or use of iterative reconstruction technique. COMMENT: There is a left lower quadrant ostomy and an apparent umbilical hernia containing a loop of colon. There are bilateral sacral insufficiency fractures. There our fractures of the transverse processes of L5 bilaterally. There is a suprapubic tube. There is some calcium pyrophosphate deposition within the symphysis pubis. The visualized portions of the femora are intact. No additional fractures are demonstrated. IMPRESSION: Bilateral L5 transverse process fractures and bilateral sacral shannan fractures most likely due to sacral insufficiency. Electronically signed by Cem Gaston 12/03/2019 1:06 PM
--- NOTE | 2019-12-03 13:45 | EKG Report ---
Test Performed on : 12/03/2019 1:21:51 PM Test Reason : pain Blood Pressure : / mmHG Vent. Rate : 077 BPM Atrial Rate : 077 BPM P-R Int : 138 ms QRS Dur : 094 ms QT Int : 380 ms P-R-T Axes : 030 008 046 degrees QTc Int : 430 ms Normal sinus rhythm. Normal ECG No previous ECGs available Unconfirmed Result
[2019-12-03 13:47] LABS: BASO# 0.02 X1000 (0.0-0.2); BASO% 0.2 % (0.0-0.8); EOS# 0.22 X1000 (0.0-0.7); EOS% 2.7 % (0.0-10.0); HEMATOCRIT 38.2 % (37.0-47.0); HEMOGLOBIN 11.9 g/dL (12.0-16.0); IMM GRAN# 0.02 X1000 (0.0-0.04); IMM GRAN% 0.2 % (0.0-0.5); LYMPH# 1.59 X1000 (1.2-3.4); LYMPH% 19.4 % (20.5-51.1); MCH 28.7 PG (27-31); MCHC 31.2 g/dL (33-37); MCV 92.3 FL (81-99); MONO# 0.83 X1000 (0.11-0.59); MONO% 10.1 % (1.7-9.3); MPV 9.9 FL (7.4-10.4); NEUT# 5.52 X1000 (1.4-6.5); NEUT% 67.4 % (42.2-75.2); PLT 374 X1000 (130-400); RBC 4.14 XMIL (4.2-5.4); RDW 14.6 % (11.5-14.5)
[2019-12-03 13:49] LABS: BILIRUBIN URINE NEGATIVE (NEGATIVE); BLOOD URINE SMALL (NEGATIVE); COLOR YELLOW; GLUCOSE URINE NEGATIVE (NEGATIVE); KETONE URINE TRACE mg/dL (NEGATIVE); LEUKOCYTES URINE MODERATE (NEGATIVE); NITRITE URINE NEGATIVE (NEGATIVE); PH URINE 6.5; PROTEIN URINE 50 mg/dL (NEGATIVE); SP GRAVITY URINE 1.023; TURBIDITY URINE CLEAR (CLEAR); URINE SOURCE CATH; UROBILINOGEN URINE NORMAL (NORMAL)
[2019-12-03 13:50] LABS: UR EPITHELIAL CELLS <10 /HPF (<10); URINE BACTERIA 4+ /HPF; URINE RBC <10 /HPF (<10); URINE WBC 20-40 /HPF (<10)
[2019-12-03 13:56] LABS: INR 0.99; PROTIME 13.2 Seconds (11.0-16.0)
[2019-12-03] MEDS ORDERED: VANCOMYCIN 1 GM/NS 1 GM/250 ML IVPB IV ONE (13:56)
[2019-12-03] MEDS ORDERED: ROCEPHIN 1 GM in NS 50 ML IV ONE (13:56)
[2019-12-03 14:14] LABS: AGAP 10; ALB/GLOB RATIO 1.4; ALBUMIN 3.6 g/dL (3.5-5.0); ALKALINE PHOSPHATASE 138 U/L (32-104); BUN 10 mg/dL (8-22); CALCIUM 9.2 mg/dL (8.8-10.2); CHLORIDE 104 mmol/L (98-107); COSMO 276; CREATININE 0.6 mg/dL (0.5-0.9); ESTIMATED GFR > 60; GLUCOSE 96 mg/dL (70-104); GOT 15 U/L (10-30); GPT 11 U/L (10-36); POTASSIUM 4.3 mmol/L (3.5-5.1); SODIUM 139 mmol/L (136-145); TCO2 25 mmol/L (25-35); TOTAL BILIRUBIN 0.29 mg/dL (0.20-1.00); TOTAL PROTEIN 6.1 g/dL (6.3-8.3)
[2019-12-03 14:28] LABS: UR AMPHETAMINES QUAL NONE DETECTED (NONE DETECT); UR BARBITUATES QUAL NONE DETECTED (NONE DETECT); UR BENZODIAZEPIN QUAL NONE DETECTED (NONE DETECT); UR CANNABINOIDS QUAL NONE DETECTED (NONE DETECT); UR COCAINE QUAL NONE DETECTED (NONE DETECT); UR METHADONE QUAL NONE DETECTED (NONE DETECT); UR OPIATES QUAL PRESUMPTIVE POSITIVE (NONE DETECT); UR OXYCODONE QUAL NONE DETECTED (NONE DETECT); UR PCP QUAL NONE DETECTED (NONE DETECT)
--- NOTE | 2019-12-03 15:00 | PROVIDER DOCUMENTATION ---
This chart was entered by Robyn Harley Scribe, acting as scribe for Marcelo Rodriguez MD. HPI-Musculoskeletal Pain/Inj - GENERAL Chief Complaint: Extremity Injury Stated Complaint: HIP LEG PAIN/FALL Time Seen by Provider: 12/03/19 12:05 Source: patient, other (friend) - HX OF PRESENT ILLNESS-MUSKULOSKELTAL Nature of Presenting Problem: 59 yowf presents to the ed with c/o rt hip and leg pain post fall 1 week prior. pt was seen for same complaint on and had negative scans. pt sts once she fell she thought she was doing good but pain is now worse and she is unable to walk. pt on exam has full rom of BLE and BUE. pt is tearful and anxious. pt denies LOC with fall and lives alone. pt has home health come out often for ulcerations on buttocks and treat Quality of Pain: reports: aching Severity in ED: moderate Onset/Duration: 1 week ago Timing: intermittent, getting worse Modifying Factors: improves with: nothing. worse with: palpation Any recent injury?: Yes (1 week prior slipped on a rug) Locality of Occurance: Home Similar Symptoms Previously?: No Recently seen or treated by another doctor?: Yes (seen in ed 11/29/2019) - FALL INJURY Location of Pain/Injury: reports: other (rt hip) Reason for Fall: reports: slipped Symptoms prior to fall:: reports: none Loss of Consciousness: no loss of consciousness Injury Associated Symptoms: reports: joint pain, muscle aches, trouble walking Review of Systems - Adult - REVIEW OF SYSTEMS - ADULT Constitutional: denies: chills, fever Eyes: reports: no symptoms reported Ears, Nose, Mouth & Throat: reports: no symptoms reported Cardiovascular: denies: chest pain, palpitations Respiratory: denies: shortness of breath, wheezing Gastrointestinal: denies: abdominal pain, diarrhea, nausea, vomiting Genitourinary: reports: no symptoms reported Musculoskeletal: reports: see HPI, joint pain. denies: back pain, joint swellin g, neck pain Integumentary: reports: no symptoms reported Neurological: reports: no symptoms reported Psychiatric: reports: no symptoms reported Endocrine: reports: no symptoms reported Hematologic/Lymphatic: reports: no symptoms reported Allergic/Immunologic: reports: no symptoms reported All Other Systems: Reviewed and Negative Past History - Adult - PAST MEDICAL HISTORY-ADULT Review of Records: reports: Old Records Reviewed, Nursing Assessment Review, Medications Reviewed, Social history reviewed & non-contributory. Major Childhood Illnesses: reports: denies history Cardiovascular: reports: denies history Respiratory: reports: denies history Gastrointestinal: reports: cancer (anal), obstruction Obstetrical/Gynecological: reports: denies history Genitourinary: reports: denies history Musculoskeletal: reports: arthritis, fibromyalgia Neurological: reports: denies history Psychiatric: reports: denies history Endocrine/Immune: reports: thyroid disorder Other Conditions: reports: denies history - PRIOR SURGERIES/PROCEDURES Surgical/Procedure History: reports: other (colostomy) - IMMUNIZATION STATUS Childhood Immunizations: See Nurse Assessment Flu Vaccine: See Nurse Assessment - FAMILY HISTORY Family History: reviewed, not pertinent Physical Exam-Injury Related - Physical Exam-Injury Related Initial Vital Signs Reviewed: Yes General Appearance: alert, mild distress, obese Eyes: other (pt sts she is blind) Head, Ears, Nose, Mouth & Throat: moist mucous membranes Neck: non-tender, full range of motion, supple, normal inspection Respiratory: chest non-tender, lungs clear, normal breath sounds Cardiovascular: normal peripheral pulses, tachycardia (120) Chest/Breast: deferred Abdominal Exam: normal bowel sounds, non tender, soft, other (pt has colostomy LLQ and suprapubic cath both look well with no signs of issue) Female Genitalia/Pelvic Exam: deferred Rectal Exam: other (has noted pressure ulcerations midline of buttocks. pt has home health and wounds look well with no signs of infection) Hemoccult Exam: deferred Lymphatic: no adenopathy Back Exam: no CVA tenderness, no vertebral tenderness Extremity: normal range of motion, normal capillary refill ( `), pelvis stable, tenderness (rt hip), other (pt has full rom BUE and BLE but sts unable to walk or bear weight) Integumentary: warm/dry, decubitus (midline of buttocks), ecchymosis (to rt hip) Neurologic: grossly normal Psych/Mental Status: normal mood/affect, normal thought content, normal thought process, oriented x 3, anxious, tearful - Glascow Coma Score Best Eye Response ([place]): (4) open spontaneously Best Verbal Response ([place]): (5) oriented Best Motor Response ([place]): (6) obeys commands [place] Total: 15 Progress - PLAN OF CARE/RESULTS Progress/Plan/Lab Results: Vital Signs - 8 hr 12/03/19 11:53 Temperature 97.7 F Pulse Rate 120 H Respiratory Rate 19 Blood Pressure 158/92 O2 Sat by Pulse Oximetry 99 Laboratory Results - last 24 hr 12/03/19 12/03/19 12/03/19 13:28 13:28 13:28 WBC RBC Hgb Hct MCV MCH MCHC RDW Std Deviation Plt Count MPV Immature Gran % (Auto) Neut % (Auto) Lymph % (Auto) [place] % (Auto) Eos % (Auto) Baso % (Auto) Immature Gran # (Auto) Neut # (Auto) Lymph # (Auto) [place] # (Auto) Eos # (Auto) Baso # (Auto) PT INR Sodium 139 Potassium 4.3 Chloride 104 Carbon Dioxide 25 Anion Gap 10 BUN 10 Creatinine 0.6 Estimated GFR/1.73 m2 > 60 BUN/Creatinine Ratio 17 Glucose 96 Calculated Osmolality 276 Calcium 9.2 Total Bilirubin 0.29 AST 15 ALT 11 Alkaline Phosphatase 138 H Troponin T High Sens 12 Zrm-Q-Rflddpuadxh Pept 458 H Total Protein 6.1 L Albumin 3.6 Globulin 2.5 Albumin/Globulin Ratio 1.4 Plasma Lactate Urine Source Urine Color Urine Turbidity Urine pH Ur Specific [place] Urine Protein Ur Glucose (Stick) Ur Ketones (Stick) Urine Blood Urine Nitrite Urine Bilirubin Urobilinogen Dipstick Urine Leukocytes Urine WBC (Auto) Urine RBC (Auto) U Epithel Cells (Auto) Urine Bacteria (Auto) Urine Opiates Screen Ur Oxycodone Screen Ur Methadone, Qual Ur Barbiturates Screen Ur Phencyclidine Scrn Ur Amphetamines Screen U Benzodiazepines Scrn Urine Cocaine Screen U Cannabinoids Screen 12/03/19 12/03/19 12/03/19 13:28 13:28 13:30 WBC 8.20 RBC 4.14 L Hgb 11.9 L Hct 38.2 MCV 92.3 MCH 28.7 MCHC 31.2 L RDW Std Deviation 14.6 H Plt Count 374 MPV 9.9 Immature Gran % (Auto) 0.2 Neut % (Auto) 67.4 Lymph % (Auto) 19.4 L [place] % (Auto) 10.1 H Eos % (Auto) 2.7 Baso % (Auto) 0.2 Immature Gran # (Auto) 0.02 Neut # (Auto) 5.52 Lymph # (Auto) 1.59 [place] # (Auto) 0.83 H Eos # (Auto) 0.22 Baso # (Auto) 0.02 PT 13.2 INR 0.99 Sodium Potassium Chloride Carbon Dioxide Anion Gap BUN Creatinine Estimated GFR/1.73 m2 BUN/Creatinine Ratio Glucose Calculated Osmolality Calcium Total Bilirubin AST ALT Alkaline Phosphatase Troponin T High Sens Eff-N-Xakcijozogk Pept Total Protein Albumin Globulin Albumin/Globulin Ratio Plasma Lactate Urine Source CATH Urine Color YELLOW Urine Turbidity CLEAR Urine pH 6.5 Ur Specific [place] 1.023 Urine Protein 50 A Ur Glucose (Stick) NEGATIVE Ur Ketones (Stick) TRACE A Urine Blood SMALL A Urine Nitrite NEGATIVE Urine Bilirubin NEGATIVE Urobilinogen Dipstick NORMAL Urine Leukocytes MODERATE A Urine WBC (Auto) 20-40 A Urine RBC (Auto) <10 U Epithel Cells (Auto) <10 Urine Bacteria (Auto) 4+ Urine Opiates Screen Ur Oxycodone Screen Ur Methadone, Qual Ur Barbiturates Screen Ur Phencyclidine Scrn Ur Amphetamines Screen U Benzodiazepines Scrn Urine Cocaine Screen U Cannabinoids Screen 12/03/19 12/03/19 13:40 14:15 WBC RBC Hgb Hct MCV MCH MCHC RDW Std Deviation Plt Count MPV Immature Gran % (Auto) Neut % (Auto) Lymph % (Auto) [place] % (Auto) Eos % (Auto) Baso % (Auto) Immature Gran # (Auto) Neut # (Auto) Lymph # (Auto) [place] # (Auto) Eos # (Auto) Baso # (Auto) PT INR Sodium Potassium Chloride Carbon Dioxide Anion Gap BUN Creatinine Estimated GFR/1.73 m2 BUN/Creatinine Ratio Glucose Calculated Osmolality Calcium Total Bilirubin AST ALT Alkaline Phosphatase Troponin T High Sens Drw-Y-Eakwcoytqor Pept Total Protein Albumin Globulin Albumin/Globulin Ratio Plasma Lactate 1.1 Urine Source Urine Color Urine Turbidity Urine pH Ur Specific [place] Urine Protein Ur Glucose (Stick) Ur Ketones (Stick) Urine Blood Urine Nitrite Urine Bilirubin Urobilinogen Dipstick Urine Leukocytes Urine WBC (Auto) Urine RBC (Auto) U Epithel Cells (Auto) Urine Bacteria (Auto) Urine Opiates Screen PRESUMPTIVE POSITIVE A Ur Oxycodone Screen NONE DETECTED Ur Methadone, Qual NONE DETECTED Ur Barbiturates Screen NONE DETECTED Ur Phencyclidine Scrn NONE DETECTED Ur Amphetamines Screen NONE DETECTED U Benzodiazepines Scrn NONE DETECTED Urine Cocaine Screen NONE DETECTED U Cannabinoids Screen NONE DETECTED Orders Category Date Time Status NEWS Score 2-4:Order NEWS Lactate Series NOW Care 12/03/19 11:57 Active Nursing- Obtain EKG once Care 12/03/19 12:18 Active CHEST-PORTABLE [RAD] Stat Exams 12/03/19 12:[address] LUMBAR SPINE W/O CONTRAST [CT] Stat Exams 12/03/19 12:[address] PELVIS W/O CONTRAST [CT] Stat Exams 12/03/19 12:18 Completed BLOOD CULTURE [BLDCUL] Stat Lab 12/03/19 14:10 Results CBC WITH ELECTRONIC DIFF [HEME] Stat Lab 12/03/19 13:28 Completed COMPREHENSIVE METABOLIC PANEL [CHEM] Stat Lab 12/03/19 13:28 Completed LACTATE, PLASMA [CHEM] Stat Lab 12/03/19 14:15 Completed PRO B-NATRIURETIC PEPTIDE Stat Lab 12/03/19 13:28 Completed PROTIME WITH INR [COAG] Stat Lab 12/03/19 13:28 Completed TROPONIN T HIGH SENSITIVITY Stat Lab 12/03/19 13:28 Completed URINALYSIS W/POSS RFLX CULT [URINALYSIS] Stat Lab 12/03/19 13:30 Completed URINE CULTURE [RM] Routine Lab 12/03/19 13:30 Received URINE DRUG SCREEN Stat Lab 12/03/19 13:40 Completed 0.9% Sodium Chloride Inj [Ns] 1,000 ml Med 12/03/19 12:20 Discontinued IV 999 mls/hr CefTRIAXONE [Rocephin] 1 gm Med 12/03/19 13:56 Discontinued 0.9% Sodium Chloride Inj [Ns] 50 ml IV NOW Morphine Med 12/03/19 12:20 Discontinued 2 mg IV NOW ONE Morphine Med 12/03/19 14:17 Discontinued 2 mg IV NOW ONE Ondansetron [Zofran] Med 12/03/19 12:20 Discontinued 4 mg IV NOW ONE Orphenadrine [Norflex] Med 12/03/19 12:20 Discontinued 60 mg IV NOW ONE Vancomycin 1 gm/Ns Med 12/03/19 13:56 Discontinued 1 gm in 250 ml IV NOW EKG [EKG] Stat Ther 12/03/19 12:18 Draft Result Diagrams: 12/03/19 13:28 12/03/19 13:28 - REASSESSMENT Reassessment #1 Time Reassessed: 14:53 Status: improving (given morphine for pain, IV rocephin/vanc for complicated UTI) - EKG 1 Time of EKG reading by physician:: 13:21 EKG Read and Signed by:: Marcelo Rodriguez EKG Interpretation (*Must complete 3 of following elements*): Normal Rate: 77 Rhythm: nsr [place]: normal QRS: normal NM Interval: normal ST Wave: normal - XRAY 1 XRAY: Bilateral XRAY Study: Chest Impression: See EMR Report (EXAM: CHEST-PORTABLE HISTORY: hip fall TECHNIQUE: Single view COMPARISON: 10/20/2019 FINDINGS: The lungs are well expanded. No contusion. No pneumothorax. The heart is not enlarged. The vessels are not distended. There are no infiltrates. No effusion identified. IMPRESSION: Negative exam. Electronically signed by Bola Jon 12/03/2019 12:37 PM 12/03/19 1237 Interpreting Physician: Bola Jon MD Dictated Date/Time: 12/03/19 1237 cc: Marcelo Rodriguez MD; Rey Ramirez MD) - CT/MRI 1 CT Study: Lumbar Spine Impression: See EMR Report (EXAM: CT LUMBAR SPINE W/O CONTRAST 12/03/2019 HISTORY: fall TECHNIQUE: This exam was performed using automated exposure control, adjustment of mA or kV according to patient size, and/or use of iterative reconstruction technique. COMMENT: There are bilateral acute sacral insufficiency fractures. There is no evidence of fracture or subluxation in the lumbar spine. There is facet arthropathy with vacuum phenomenon at L4-5 on the r ight. There is minimal anterolisthesis of L4 on L5. No oblique due to facet arthropathy. IMPRESSION: Bilateral sacral insufficiency fractures. Electronically signed by Cem Gaston 12/03/2019 1:02 PM 12/03/19 1302 Interpreting Physician: Cem Gaston MD Dictated Date/Time: 12/03/19 1300 cc: Marcelo Rodriguez MD; Rey Ramirez MD) 2 CT Study: Pelvis Impression: See EMR Report (XAM: CT PELVIS W/O CONTRAST 12/03/2019 HISTORY: fall, continued right pelvis/hip pain TECHNIQUE: This exam was performed using automated exposure control, adjustment of mA or kV according to patient size, and/or use of iterative reconstruction technique. COMMENT: There is a left lower quadrant ostomy and an apparent umbilical hernia containing a loop of colon. There are bilateral sacral insufficiency fractures. There our fractures of the transverse processes of L5 bilaterally. There is a suprapubic tube. There is some calcium pyrophosphate deposition within the symphysis pubis. The visualized portions of the femora are intact. No additional fractures are demonstrated. IMPRESSION: Bilateral L5 transverse process fractures and b ilateral sacral shannan fractures most likely due to sacral insufficiency. Electronically signed by Cem Gaston 12/03/2019 1:06 PM 12/03/19 1306 Interpreting Physician: Cem Gaston MD Dictated Date/Time: 12/03/19 1302 cc: Marcelo Rodriguez MD; Rey Ramirez MD) - CONSULTS/PCP/HOSPITALIST Notification #1 *Consult/PCP/Hospitalist*: dr phoenix flores Time Discussed: 13:15 (will consult) Reason/Comments: phone consult #2 Consult: hospitalistAnabell, paged at [phone] Time Discussed: 14:57 (spoke with anabell ) Reason/Comments: dr serna will accept Consult Disposition: Will see in ED, Admit Departure - Departure Date of Disposition Decision: 12/03/19 Time of Disposition Decision: 14:54 DIAGNOSIS: Complicated UTI (urinary tract infection) Bilateral sacral insufficiency fracture Qualifiers: Encounter type: initial encounter Qualified Code(s): M84.48XA - Pathological fracture, other site, initial encounter for fracture Closed fracture of transverse process of lumbar vertebra Qualifiers: Encounter type: initial encounter Qualified Code(s): S32.009A - Unspecified fracture of unspecified lumbar vertebra, initial encounter for closed fracture Disposition: ADMITTED INPATIENT 09 Certified Medical Emergency: Emergent Condition: Fair Referrals and Follow-Ups: Rey Ramirez MD [Primary Care Provider] - - Critical Care Note This patient required my direct & personal management of CC.: No Attestation - Physician/ DIPTI Attestation Patient care was provided by Advanced Practice Provider:: No The physician spent face to face time with patient:: Yes Advanced Practice Provider documentation review:: Supervising physician onsite and consulted in the evaluation and care of this patient. The physician did have a face to face encounter with the patient. This chart was documented by the indicated scribe, (Robyn Harley Scribe) and accurately reflects the services I performed and decisions made by me, Marcelo Rodriguez MD, as attested by the provider's signature.
--- NOTE | 2019-12-03 17:06 | HISTORY AND PHYSICAL ---
PRIMARY CARE PHYSICIAN: This is a 59-year-old who is followed by Dr. Rey Ramirez. PAST MEDICAL HISTORY: 1. Rectal cancer with colostomy and anal fissure repair. 2. 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 3. Anemia. 4. Cancer associated retinopathy. 5. Hypothyroidism. 6. Gastroesophageal reflux disease. 7. Fibromyalgia. 8. Rheumatoid arthritis. 9. Skin cancer. SURGICAL HISTORY: 1. Status post tonsillectomy. 2. Status post hysterectomy. 3. Tubal ligation. 4. Cataracts. 5. Anal fissure repair. 6. Colostomy placement for anal cancer. 7. Suprapubic catheter placement. 8. Hernia repair. 9. Varicose vein surgery. 10. Fistula repair. FAMILY HISTORY: Mom had small cell lung cancer and of small cell lung cancer, also history of diabetes and hypothyroidism, glaucoma and cataracts. Sister with hypothyroidism. 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 She does have a caregiver that helps her. She quit smoking 3 years ago or more. She quit drinking over 40 years ago. She said she used to be an alcoholic but has not drank in 40 years. Denies any illicit drugs. ALLERGIES: Ether, hydrocodone but she found out it is not the hydrocodone it is some of the byproducts. She mentioned it was Percocet but hydromorphone she said does not work. Silvadene. She is allergic to sulfasalazine. She is allergic to etodolac and methotrexate and Tolmetin. HISTORY OF PRESENT ILLNESS: She fell about a week ago. Her right foot got caught in 1 of her mats and she fell on her back. When she tried to get up on a chair she almost made it up, but then slipped again and fell. She was able to make it to the bed with assistance, but she has not been able to get out of bed and not been able to walk or bear weight. She has a colostomy and she has a suprapubic tube, and she is completely blind and so she is unable to go home. High risk for fall, unable to care for herself and will need to go to rehab for some time. At the current time, she is being [facility]. I think she has had some reconstructive surgery for the anal wall and so we will ask Dr. Lima just to evaluate that while she is here. We will have orthopedic just evaluate her. She suffered some sacral insufficiency fractures and she also has a transverse fracture in her lumbar spine. We are going to put her in the hospital, give her some pain control and initiate physical therapy and look for placement. She did have some sediment in the urine. I am not sure if she was symptomatic but we are going to treat her for possible urinary tract infection. She has a suprapubic catheter, so expecting to have recurrent sediment there. REVIEW OF SYSTEMS: General: She denies any weight gain or loss. No fever or chills. HEENT: No change in vision or hearing acuity. Respiratory: No increased work of breathing or dyspnea. Cardiovascular: No chest pain or tachy palpitation. Gastrointestinal and Genitourinary: No gross hematuria or dysuria. Musculoskeletal: Just back and pelvic pain and pain in anterior groin with movement of her leg. She can lift her legs off the bed, but it is very painful. Neurologic: She is awake and alert, very pleasant, oriented x3. PHYSICAL EXAMINATION: VITAL SIGNS: Temperature 97.7 degrees, pulse 120, respirations 19, blood pressure 158/92. HEENT: Pupils are equal and round. No distended neck veins appreciated. CVP appears less than 6 cm in the right atrium. Did not appreciate any lymphadenopathy in the cervical, supraclavicular or femoral areas. LUNGS: Clear anterolateral. CARDIOVASCULAR: Regular rhythm and rate without murmur or S3. ABDOMEN: Soft. SKIN: Warm and dry. NECK: Supple. No thyromegaly. LABORATORY DATA: White count 8200, hematocrit is 38, hemoglobin 11.9 with an MCV of 92, platelet count 374,000. Sodium 139, potassium 4.3, chloride 104, BUN 10, creatinine 0.6, blood sugar 96, calcium 9.2, AST 15, ALT is 11, alkaline phosphatase is 138. ProBNP was 458. High-sensitivity troponin was only 12. Plasma lactate level 1.1. Urine drug screen was positive for opiates, negative for oxycodone, methadone, barbiturates, phencyclidine, amphetamines, benzodiazepines, cocaine and cannabinoids. Urinalysis 4+ bacteria. White blood cells 20 to 40. This is a suprapubic catheter collection. Chest x-ray negative exam. Lungs well expanded. No contusion. No pneumothorax. The heart is not enlarged. Vessels were not distended. No infiltrates. No effusion identified. Lumbar spine CT revealed bilateral sacral insufficiency fractures, minimal anterior listhesis of L4-5. There is facet arthropathy. There is no evidence of fracture or subluxation of lumbar spine, but bilateral acute sacral insufficiency fractures. CT of the pelvis, bilateral L5 transverse process fractures, and bilateral sacral fractures, most likely due to sacral insufficiency. ASSESSMENT AND PLAN: 1. Sacral fracture, bilateral L5 transverse process fractures. She is unable to stand or bear weight. She is also blind and in quite a bit of pain and so we need to put her in the hospital. We will initiate some physical therapy. We will need to find physical therapy for discharge and the goal is to get her back in to independent living, but she also needs pain control. We will get social service involved. We will get physical therapy involved. We will get Occupational therapy involved. We will ask Orthopedic to evaluate, give their advice. 2. She has a history of anal surgery and treatment and she has had some reconstructive surgery around the anal canal and Dr. Lima has been following her as an outpatient, so we will have him follow her while she is here. 3. She has rheumatoid arthritis. We will continue her azathioprine, I think she said she was taking 250 daily. We will continue her current medication. She also has Lumigan eyedrops. 4. 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 5. She has sediment, but this is a suprapubic catheter. Not sure she really has symptoms, but we are going to treat her for possible urinary tract infection. We will treat her with ceftriaxone. 6. History of constipation. Continue MiraLAX. 7. Apparently, history of hypothyroidism. She is on levothyroxine 75 mcg daily. We will check her T4, TSH, B12 and folate. cc: MD Rey Gillespie MD
[2019-12-03] MEDS ORDERED: TYLENOL PO PRN (17:08)
[2019-12-03] MEDS ORDERED: ZOFRAN IV PRN (17:08)
[2019-12-03 17:49] LABS: FREE T4 1.62 ng/dL (0.93-1.70); TSH 3.77 uIUmL (0.27-4.20)
[2019-12-03] MEDS: NORCO-5 PO PRN (19:11)
[2019-12-03] MEDS: LOVENOX SUBQ SCH (19:16)
[2019-12-03] MEDS: NS 1,000 ML IV SCH (19:17)
--- NOTE | 2019-12-03 20:17 | GENERAL SURGERY CONSULTATION ---
DATE: 12/03/2019 REASON FOR CONSULTATION: Fall with L5 transverse process and sacral alar fractures. CHIEF COMPLAINT: Lower back and gluteal pain. HISTORY OF PRESENT ILLNESS: This is a female known to me for the last several years at the [facility]. In brief, she had a complicated surgical history at an outside hospital for treatment for anal cancer that was treated with radiation therapy and subsequently partial vaginectomy and abdominoperineal resection and flap reconstruction of perineum. This has left her with a chronic wound of her perineum that has been noninfected but has been is difficult to heal, and it does tunnel. 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 It has been refractory to medical management. Now she is clinically blind, because of her immobility and multiple issues, she also has an indwelling Bryan catheter, colostomy. She sustained a fall several days ago and has had persistent lower sacral and pelvic pain. CT in the ER today confirmed the fracture as mentioned above. Otherwise, she is doing okay. MEDICAL HISTORY: She does have a history of smoking. I believe she has quit. She has diabetes. She has high blood pressure, history of anal cancer, history of radiation therapy to her perineum. SURGICAL HISTORY: Extensive, but includes abdominoperineal resection with flap reconstruction of her perineum via a gracilis flap I believe harvested from the right, had a partial vaginectomy. She has had a suprapubic catheter placement. She has had an end colostomy as part of her APR. SOCIAL HISTORY: She has attentive friends that take care of her, but she lives by herself. FAMILY HISTORY: Reviewed. REVIEW OF SYSTEMS: Ten-point negative, otherwise mentioned in HPI. LABORATORY DATA: I reviewed her labs. She does have UTI on urinalysis. I believe a mild leukocytosis. PHYSICAL EXAMINATION: General: She is alert in no acute distress. HEENT: She has vision loss. Cardiovascular: Normal rate. Pulmonary: No increased work of breathing. Abdomen: Soft, nontender. Suprapubic catheter is in place. Genitourinary Exam: She has stable chronic wound to the perineum with some more superficial skin ulcerations in the superior gluteal cleft. Peripheral vascular: She has trace lower extremity edema. ASSESSMENT AND PLAN: This is a female with recent fall. She needs rehab. The plan is to admit for intravenous antibiotics for her complicated urinary tract infection and local wound care and ultimately disposition to rehab to aid her with her balance. It is just becoming difficult to take care of herself even with the care of her attentive family. We will ask Marcela to see her and help with her wounds while here. In the meantime, nutritional support and offloading is most important. We will follow along. cc: Zach Lima MD
--- NOTE | 2019-12-03 21:36 | ORTHOPAEDICS CONSULTATION ---
DATE: 12/03/2019 Consult from [facility]. REASON FOR CONSULTATION: Sacral fractures. PAST MEDICAL HISTORY: 1. Diabetes. 2. Hypertension. 3. Rectal cancer. 4. Hypothyroidism. 5. Anemia. 6. Fibromyalgia. 7. Rheumatoid arthritis. 8. Skin cancer. PAST SURGICAL HISTORY: 1. Placement of suprapubic catheter. 2. Colostomy for rectal cancer. 3. Anal fissure repair. 4. Bilateral tubal ligation. 5. Cataract surgery. 6. Hernia repair. 7. Fistula repair. MEDICATIONS: 1. Azathioprine. 2. Duloxetine. 3. Montelukast. 4. Vitamin A. 5. [place] 5 mg q.6 hours. 6. Oxybutynin. 7. Vitamin B. 8. Synthroid. 9. Methocarbamol. 10. Cetirizine. 11. Zofran. 12. Aspirin 81 mg. 13. MiraLAX. ALLERGIES: Patient reports allergy to hydrocodone, Dilaudid, silver sulfadiazine. SOCIAL HISTORY: The patient is a former smoker; however, quit 3 years ago. She denies any tobacco or alcohol use. She lives alone in an apartment. 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 FAMILY HISTORY: Noncontributory. REVIEW OF SYSTEMS: Ten point review of system was completed and is negative other than what is listed in History of Present Illness. CHIEF COMPLAINT: Low back and buttocks pain. HISTORY OF PRESENT ILLNESS: Ms. Traylor is a 59-year-old lady who sustained a same-level fall at home about 1 week ago. She states she slipped on her linoleum floor, falling onto her buttocks. Following this, she was able to get up and went to take another couple of steps when she fell again onto her right side. After the second fall, she had significant pain in her buttocks. She was able to get up and walk for the next couple of days; however, pain increased, so she came to the ER where x-rays were taken demonstrating no obvious fractures, and she was thus sent home. She presented back to the ER today, now about 1 week out from the fall, with inability to walk. CT scan was done showing L5 bilateral transverse process fractures as well as bilateral sacral ala insufficiency fractures. Orthopedic Surgery was consulted. The patient states she was ambulating without a walker up to this point. She does live alone despite the fact she has significant medical problems and is blind. She takes aspirin 81 mg for DVT prophylaxis. She has a complicated history of rectal cancer and has been treated with Dr. Wei Lima, and currently has a suprapubic catheter as well as colostomy. PHYSICAL EXAMINATION: General: Ms. Traylor is a 59-year-old female who appears well nourished, well developed, in no acute distress. She is awake, alert, oriented x3. She is very polite and cooperative during examination. Vital Signs: Temperature 97.8 degrees Fahrenheit, heart rate 68, respiratory rate 18, blood pressure 123/70. HEENT: Normocephalic and atraumatic. Respiratory: Nonlabored breathing. Cardiovascular: Regular rate and rhythm. Extremities: Examination of bilateral lower extremities shows skin intact. Thighs and calves are soft and compressible. She is nontender to palpation in her thighs, knees, legs, ankles, and feet. She has no pain in her groin with log roll of her hips. She has significant tenderness to palpation posteriorly around her sacrum and lower lumbar spine. She is nontender over the anterior aspect of her pelvis. Motor is intact, quadriceps, hamstrings, EHL, tibialis anterior, gastrocsoleus complex. Sensation intact to light touch at L3-S1. Dorsalis pedis pulse palpable and equal bilaterally. IMAGING: CT scan of the pelvis was reviewed, demonstrating bilateral zone 1 sacral ala fractures that are nondisplaced, as well as bilateral L5 transverse process fractures. CT scan of the lumbar spine was also reviewed, demonstrating good alignment on coronal and sagittal planes. No signs of compression fracture or spondylolisthesis. Overall normal appearing lumbar spine. She has some atherosclerosis of her abdominal aorta. ASSESSMENT: 59-year-old female status post same-level fall with bilateral L5 transverse process fractures, as well as bilateral zone 1 sacral ala fractures. PLAN: Long discussion was held with the patient regarding diagnosis and treatment options. Given the fact that she was able to ambulate after sustaining the fractures for several days indicates this is likely a stable injury. This should not require any surgical intervention. She does have significant medical history and is blind, so she will have a hard time mobilizing and getting around. She will definitely need inpatient rehab for a prolonged period of time until she can competently walk on her own and get back to independent status. The patient is being admitted to the hospitalist service. Recommend rehab placement. She will need 6 weeks of anticoagulation for pelvic ring injury as she likely will be minimally ambulatory. She does have a stable fracture pattern, so she should be able to be weightbearing as tolerated as pain allows. We will plan on getting AP inlet and outlet views of the pelvis weightbearing tomorrow in order to assess for any vertical instability of the fracture site. Assuming those x-rays are negative, she can be weightbearing as tolerated. She can follow up with me in clinic in 2 weeks for repeat x-rays. Thank you for the consultation. We will continue to follow along while she is in-house.
[2019-12-04] MEDS: NORCO-5 PO PRN ×5 (00:02→21:05)
[2019-12-04] MEDS ORDERED: MORPHINE IV ONE (01:29)
[2019-12-04 08:00] LABS: BASO# 0.02 X1000 (0.0-0.2); BASO% 0.4 % (0.0-0.8); EOS# 0.19 X1000 (0.0-0.7); EOS% 3.6 % (0.0-10.0); HEMATOCRIT 34.4 % (37.0-47.0); HEMOGLOBIN 10.2 g/dL (12.0-16.0); IMM GRAN# 0.02 X1000 (0.0-0.04); IMM GRAN% 0.4 % (0.0-0.5); LYMPH# 1.88 X1000 (1.2-3.4); LYMPH% 35.7 % (20.5-51.1); MCH 27.9 PG (27-31); MCHC 29.7 g/dL (33-37); MCV 94.2 FL (81-99); MONO# 0.57 X1000 (0.11-0.59); MONO% 10.8 % (1.7-9.3); MPV 10.1 FL (7.4-10.4); NEUT# 2.58 X1000 (1.4-6.5); NEUT% 49.1 % (42.2-75.2); PLT 362 X1000 (130-400); RBC 3.65 XMIL (4.2-5.4); RDW 14.9 % (11.5-14.5); WBC 5.26 X1000 (4.8-10.8)
[2019-12-04 08:08] LABS: AGAP 9; BUN 7 mg/dL (8-22); CALCIUM 8.9 mg/dL (8.8-10.2); CHLORIDE 109 mmol/L (98-107); COSMO 278; CREATININE 0.6 mg/dL (0.5-0.9); ESTIMATED GFR > 60; GLUCOSE 117 mg/dL (70-104); POTASSIUM 4.2 mmol/L (3.5-5.1); SODIUM 140 mmol/L (136-145); TCO2 22 mmol/L (25-35)
[2019-12-04] MEDS: MORPHINE IV PRN ×4 (09:06→22:53)
--- NOTE | 2019-12-04 09:29 | PROGRESS NOTE ---
DATE: 12/04/2019 SUBJECTIVE: She is very discouraged and hurting and concerned about the pain of having to have x- rays and try and stand up, so I am going to I am going to let her have some morphine 4 mg IV q.4 hours p.r.n. She does have p.o. hydrocodone, but it is really not touching the pain. She has bilateral, I think it is lumbar transverse process fracture and sacral insufficiency fractures. I appreciate Dr. Lima's help as she has had reconstructive surgery around her anus for anal cancer. OBJECTIVE: She remains afebrile, temperature 97.5 degrees, pulse 76, respirations 16, blood pressure 131/52. Pupils are equal and round. Lungs are clear in all lung brown. Cardiovascular exam with regular rate without murmur or S3. Abdomen is soft. Skin is warm and dry. Urine output is 6000 mL. LABORATORY DATA: Review of her lab from yesterday shows she has got good renal function. Electrolytes look good. ASSESSMENT/PLAN: 1. A 59-year-old female status post same level fall with bilateral L5 transverse process fractures and bilateral zone 1 sacral ala fractures. Given the fact that she was able to ambulate after sustaining fractures indicates this is likely a stable injury. We are going to have to continue physical therapy. She is not able to walk and bear weight without severe pain. We need to inpatient rehab for prolonged period of time, so we will pursue that. She will need 6 weeks of anticoagulation for pelvic ring injury as she is likely minimally ambulatory. She does have stable fracture pattern and should be able to begin weightbearing as tolerated per her pain. Plan is to get AP inlet and outlet views of the pelvis weightbearing today to assess for vertical stability of the fracture site. Assuming that these x-rays are negative, we will begin weightbearing with physical therapy. 2. We are treating her for sediment. She has a suprapubic catheter. I do not believe she has a systemic bacterial infection. 3. 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 4. History of anal cancer. She has had anal surgery, has a colostomy. She has had reconstructive surgery around the canal. Dr. Lima is following. He has [facility] and knows her well. 5. History of rheumatoid arthritis. She will continue her home medications. 6. History of constipation. Of course, more at risk for constipation because her pain medications and recent injury. 7. History of hypothyroidism. Can continue current thyroid medications. cc: Nikos Stubbs MD
--- NOTE | 2019-12-04 10:44 | Diag Imaging Result Doc PS360 ---
EXAM: PELVIS 12/04/2019 HISTORY: Sacral fracture TECHNIQUE: AP pelvis, four views COMMENT: There is generalized osteopenia/osteoporosis. The fractures of the transverse processes of L5 and the sacrum which were demonstrated on recent CT are not visible. There has been no apparent change since the previous radiograph of 11/29/2019. IMPRESSION: No definite radiographic abnormality. Electronically signed by Cem Gaston 12/04/2019 10:42 AM
--- NOTE | 2019-12-04 13:08 | ORTHOPAEDICS PROGRESS NOTE ---
DATE: 12/04/2019 SUBJECTIVE: No acute events overnight. Patient reports pain in her sacrum. Otherwise, she is doing okay. She was able to do her weightbearing films this morning, however, did report pain while standing and bearing weight. No other complaints. OBJECTIVE: Afebrile. Vital signs are stable. Hematocrit 34, white count 5.Extremities: Examination of bilateral lower extremity shows skin intact. Thigh and calf soft and compressible. Tender to palpation posteriorly around her sacrum. Nontender over the lateral aspect of her hips. Neurovascularly intact. IMAGING: Weightbearing AP pelvis inlet and outlet views were obtained this morning demonstrating no obvious vertical instability or shearing of her fracture site. No displacement of fractures. Stable appearing fracture pattern. ASSESSMENT: A 59-year-old female with bilateral L5 transverse process fractures and bilateral zone 1 sacrum fractures. PLAN: 1. Patient can be weightbearing as tolerated bilateral lower extremity. Physical therapy to work on transfers and gait training as tolerated. Patient will likely have significant pain with weightbearing, so she will more than likely be bed to chair transfers for the next couple of weeks until her fractures start to heal and pain improves. 2. Lovenox DVT prophylaxis. Patient will need prolonged chemical anticoagulation due to her fracture pattern. 3. I will plan on nonoperative treatment for this. 4. Appreciate hospitalist and General Surgery recommendations. 5. Disposition. Patient will need to be placed in a retirement facility, likely for a prolonged period of time until she is able to mobilize on her own as she does live alone. She can follow up with me in clinic in two weeks for x-rays. Please call with any questions.
[2019-12-04] MEDS: ROCEPHIN 1 GM in NS 50 ML IV SCH (15:45)
[2019-12-04] MEDS: NS 1,000 ML IV SCH ×2 (17:35→21:25)
--- NOTE | 2019-12-04 18:41 | GENERAL SURGERY PROGRESS NOTE ---
DATE: 12/04/2019 SUBJECTIVE: She is tearful this morning. She is still having some pain in her pelvis. Otherwise, no issues. No fevers. No tachycardia. OBJECTIVE: Blood pressure this morning was 127/61. General: She is alert. Abdomen: Soft. Cardiovascular: Normal rate. LABORATORY: White count is 5, hematocrit is 34. Creatinine 0.6, glucose is 117. ASSESSMENT AND PLAN: This is a 59-year-old female with multiple issues and most recently a fall with sacral alar and transverse process fracture of L5. Plan for rehab. Dr. Rios is following with regard to her fractures. We will continue local wound care and low-pressure bed and nutritional support. I talked to Marcela about this. Otherwise, she is also on antibiotics for a urinary tract infection. cc: Zach Lima MD
[2019-12-04] MEDS: LOVENOX SUBQ SCH (18:56)
[2019-12-05] MEDS: NORCO-5 PO PRN ×5 (01:05→20:17)
[2019-12-05] MEDS: MORPHINE IV PRN ×4 (03:47→21:53)
[2019-12-05] MEDS: NS 1,000 ML IV SCH (08:36)
[2019-12-05] MEDS ORDERED: NORCO-5 PO PRN (09:01)
--- NOTE | 2019-12-05 09:28 | PROGRESS NOTE ---
DATE: 12/05/2019 SUBJECTIVE: She feels much better. She got some sleep last night. She is in less pain, has a little bit more mobility in her back. OBJECTIVE: Vital signs: Temperature 97.9 degrees, pulse 75, respirations 16, blood pressure 138/62. HEENT: Pupils are equal and round. Lungs: Clear in all lung brown. Cardiovascular exam: Regular rhythm and rate without murmur or S3. Abdomen: Soft, nondistended. Skin: Warm and dry. Urine output 6800 mL. ASSESSMENT AND PLAN: 1. Bilateral L5 transverse process fractures, bilateral zone 1 sacral ala fractures. A lot of pain. She is blind and lives alone. So continue Physical Therapy and trying to find a place for rehab. Orthopedics has recommended 6 weeks of anticoagulation, and she will have minimal ambulation during this time. 2. Suprapubic catheter. We are treating. She had sediment. I do not know that she had an active infection but treating with antibiotic for now. 3. 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 4. History of anal cancer. She has had some reconstructive surgery. 5. Rheumatoid arthritis. Continue her medications. 6. History of constipation. Of course, she is at high risk for constipation now with the pain medicine and with her injury. 7. History of hypothyroidism, appears to be euthyroid. 8. Looking at her home medications, we will continue her azathioprine. We will continue her calcium carbonate, her Zyrtec. I think her duloxetine was is at 90 mg at bedtime, of course she has hydrocodone she takes at home which is 5 mg q.4-6 hours. She is on levothyroxine 75 mcg daily. She is getting Robaxin 500 mg t.i.d., Singulair, multivitamin, and she has some Ditropan, MiraLAX, she getting 17 g at bedtime. Vitamin A she gets daily, vitamin B- complex she gets daily. Her aspirin 81 mg a day, azathioprine 100 mg at bedtime, Vraylar 1.5 mg daily and ibuprofen 800 mg t.i.d. cc: Nikos Stubbs MD
--- NOTE | 2019-12-05 11:50 | GENERAL SURGERY PROGRESS NOTE ---
DATE: 12/05/2019 SUBJECTIVE: She feels some better. Pain is better controlled. No fevers. No tachycardia. Mobility is improving. We have got her on a low-pressure bed. Marcela is here as far as her wound care. No abdominal pain. Bowels are functioning. OBJECTIVE: I reviewed her labs. She does have Acinetobacter growing out of her urine. She is being treated appropriately. PLAN: We will continue to monitor. Continue local wound care. This is a chronic wound but with no signs of infection currently and plan is for nonoperative management of her sacral and transverse process fractures at L5. cc: Zach Lima MD
[2019-12-05] MEDS: IMURAN PO SCH ×2 (11:52→20:28)
[2019-12-05] MEDS: CALTRATE 600 + D PO SCH (13:32)
[2019-12-05] MEDS: ROCEPHIN 1 GM in NS 50 ML IV SCH (13:33)
[2019-12-05] MEDS: ROBAXIN PO SCH ×2 (14:51→17:48)
[2019-12-05] MEDS: MOTRIN PO SCH ×2 (14:51→20:28)
[2019-12-05] MEDS: LOVENOX SUBQ SCH (17:49)
[2019-12-05] MEDS: CYMBALTA PO SCH (20:28)
[2019-12-05] MEDS: THERA M PLUS PO SCH (20:28)
[2019-12-05] MEDS: MIRALAX PO SCH (20:29)
[2019-12-06] MEDS: NORCO-5 PO PRN ×4 (02:16→18:01)
[2019-12-06] MEDS: NS 1,000 ML IV SCH ×2 (02:21→13:01)
[2019-12-06] MEDS: MORPHINE IV PRN ×5 (04:22→21:31)
[2019-12-06] MEDS: SYNTHROID PO SCH (06:45)
[2019-12-06] MEDS: MOTRIN PO SCH ×3 (06:45→21:30)
[2019-12-06] MEDS: ASPIRIN EC PO SCH (08:50)
[2019-12-06] MEDS: CALTRATE 600 + D PO SCH (08:50)
[2019-12-06] MEDS: VICON-C PO SCH (08:51)
[2019-12-06] MEDS: ZYRTEC PO SCH (08:51)
[2019-12-06] MEDS: IMURAN PO SCH ×2 (08:51→21:30)
[2019-12-06] MEDS: VRAYLAR PO SCH (08:52)
[2019-12-06] MEDS: DITROPAN PO SCH (08:52)
[2019-12-06] MEDS: ROBAXIN PO SCH ×3 (08:52→17:14)
[2019-12-06] MEDS: SINGULAIR PO SCH (08:52)
[2019-12-06] MEDS: PATIENT'S OWN MED PO SCH (08:54)
--- NOTE | 2019-12-06 09:49 | PROGRESS NOTE ---
DATE: 12/06/2019 Ms. Traylor is feeling much better, had a good night's sleep. Her mobility is improved, less pain in her back. OBJECTIVE: Vital Signs: Remains afebrile, temperature 98.6 degrees, pulse 69, respirations 18, blood pressure 142/64. HEENT: Pupils are equal and round. Neck: No distended neck veins. Lungs: Are clear in all brown. Cardiovascular: Regular rhythm and rate without murmur or S3. Abdomen: Is soft. Skin: Is warm, dry. Urine output 5400 mL. ASSESSMENT AND PLAN: 1. She did have Acinetobacter grow out of her urine, so continue IV antibiotics. 2. Recent fall with bilateral transverse process fractures on her L5 and some sacral insufficiency fractures. She will need to go to rehab. 3. She is blind. She has a paraneoplastic retinopathy. 4. History of anal cancer with reconstructive surgery. 5. Rheumatoid arthritis. Continue present antibiotics. 6. Constipation. Continue her bowel regimen. 7. She appears to be euthyroid. She has a history of primary hypothyroidism. REVIEW OF HER ORDERS: She is back on her home medications. She was also getting some medicine for fibromyalgia and for depression, anxiety. Her lab from the reviewed again and renal function looks good. Physical therapy involved. We are looking for rehab hopefully first of the week. cc: Nikos Stubbs MD
[2019-12-06] MEDS: ROCEPHIN 1 GM in NS 50 ML IV SCH (13:28)
[2019-12-06] MEDS: LOVENOX SUBQ SCH (17:15)
[2019-12-06] MEDS: THERA M PLUS PO SCH (21:30)
[2019-12-06] MEDS: MIRALAX PO SCH (21:30)
[2019-12-06] MEDS: CYMBALTA PO SCH (21:30)
[2019-12-07] MEDS: MORPHINE IV PRN ×4 (04:48→22:01)
[2019-12-07] MEDS: NS 1,000 ML IV SCH ×2 (04:49→15:47)
[2019-12-07] MEDS: MOTRIN PO SCH ×3 (06:34→22:00)
[2019-12-07] MEDS: SYNTHROID PO SCH (06:34)
[2019-12-07] MEDS: NORCO-5 PO PRN ×2 (09:42→15:46)
[2019-12-07] MEDS: VICON-C PO SCH (09:43)
[2019-12-07] MEDS: CALTRATE 600 + D PO SCH (09:43)
[2019-12-07] MEDS: ASPIRIN EC PO SCH (09:44)
[2019-12-07] MEDS: IMURAN PO SCH ×2 (09:44→22:01)
[2019-12-07] MEDS: SINGULAIR PO SCH (09:45)
[2019-12-07] MEDS: VRAYLAR PO SCH (09:45)
[2019-12-07] MEDS: DITROPAN PO SCH (09:45)
[2019-12-07] MEDS: ZYRTEC PO SCH (09:45)
[2019-12-07] MEDS: ROBAXIN PO SCH ×3 (09:45→17:52)
[2019-12-07] MEDS: PATIENT'S OWN MED PO SCH (09:46)
--- NOTE | 2019-12-07 13:28 | PROGRESS NOTE ---
DATE: 12/07/2019 SUBJECTIVE: Ms. Traylor had a good night. She did well with physical therapy. She has her hopes on trying to go to [facility], but we will work on that. We might not find out something tomorrow. OBJECTIVE: Vital Signs: Temperature 97.9 degrees, pulse 82, respirations 18, blood pressure 123/59. HEENT: Pupils are equal and round. Lungs: Clear in all lung brown. Cardiovascular: Regular rate without murmur or S3. Abdomen: Soft. Skin: Warm and dry. Urine output is 6200 mL. ASSESSMENT AND PLAN: 1. Patient with Acinetobacter grew out of her urine. Continue IV antibiotics. 2. Recent fall, bilateral transverse process fractures in L5 and some sacral insufficiency fractures. Hoping to go to rehab. She lives alone. 3. She is blind. She has a paraneoplastic retinopathy related to her anal cancer. 4. History of anal cancer with restrict constructive surgery. 5. Rheumatoid arthritis. Continue her present medication. 6. Constipation. She is on a bowel regimen. Her bowels are moving. 7. Appears to be euthyroid. History of primary hypothyroidism, so continue her present orders. LABORATORY: Labs unremarkable. Renal function looks good. cc: Nikos Stubbs MD
[2019-12-07] MEDS: ROCEPHIN 1 GM in NS 50 ML IV SCH (15:46)
[2019-12-07] MEDS: LOVENOX SUBQ SCH (17:51)
[2019-12-07] MEDS: MIRALAX PO SCH (22:00)
[2019-12-07] MEDS: CYMBALTA PO SCH (22:00)
[2019-12-07] MEDS: THERA M PLUS PO SCH (22:01)
[2019-12-08] MEDS: MORPHINE IV PRN ×2 (04:12→10:10)
[2019-12-08] MEDS: NS 1,000 ML IV SCH (04:13)
[2019-12-08] MEDS: MOTRIN PO SCH ×3 (05:52→15:37)
[2019-12-08] MEDS: SYNTHROID PO SCH ×2 (05:53→06:52)
--- NOTE | 2019-12-08 09:35 | PROGRESS NOTE ---
DATE: 12/08/2019 SUBJECTIVE: Ms. Traylor says she had a good night, feeling good, not in any pain at the present time. OBJECTIVE: Vital Signs: Temperature 97.8 degrees, pulse 75, respirations 19, blood pressure 148/65. HEENT: Pupils are equal and round. Lungs: Clear in all lung brown. Cardiovascular: Regular rhythm and rate without murmur or S3. Urine output was 5000 mL, so good urine output. ASSESSMENT AND PLAN: 1. The patient grew Acinetobacter in the urine. Continue present IV antibiotics. I do not know that she has symptomatic urinary tract infection but treating her for urinary tract infection. 2. Recent fall. Bilateral transverse process in L5 and some sacral insufficiency fractures. She is wanting to go to rehab. She lives alone and she is blind. 3. Blind, paraneoplastic retinopathy. It happened a little over a year ago. 4. History of anal cancer with reconstructive surgery and that seems to be healing well. 5. Rheumatoid arthritis. Continue her current medication. 6. Constipation, which is resolved. Continue bowel regimen. 7. History of hypothyroidism. She is on Synthroid. She is wanting to go to [facility], and so I think she is ready when we find a rehab opportunity. cc: Nikos Stubbs MD
[2019-12-08] MEDS: ROBAXIN PO SCH ×2 (10:17→15:37)
[2019-12-08] MEDS: VICON-C PO SCH (10:17)
[2019-12-08] MEDS: DITROPAN PO SCH (10:17)
[2019-12-08] MEDS: ASPIRIN EC PO SCH (10:18)
[2019-12-08] MEDS: VRAYLAR PO SCH (10:18)
[2019-12-08] MEDS: CALTRATE 600 + D PO SCH (10:18)
[2019-12-08] MEDS: ZYRTEC PO SCH (10:18)
[2019-12-08] MEDS: SINGULAIR PO SCH (10:18)
[2019-12-08] MEDS: IMURAN PO SCH (10:18)
[2019-12-08] MEDS: PATIENT'S OWN MED PO SCH (10:19)
--- NOTE | 2019-12-08 13:44 | DISCHARGE SUMMARY ---
ADMISSION DATE: 12/03/2019 DISCHARGE DATE: 12/08/2019 IDENTIFICATION: This is a 59 year old. PAST MEDICAL HISTORY: 1. Rectal cancer with colostomy and anal fissure repair. 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 3. Anemia. 4. Cancer-associated retinopathy. 5. Hypothyroidism. 6. Gastroesophageal reflux disease. 7. Fibromyalgia. 8. Rheumatoid arthritis. 9. Skin cancer. PAST SURGICAL HISTORY: 1. Status post tonsillectomy. 2. Status post hysterectomy. 3. Tubal ligation. 4. Cataracts. 5. Anal fissure repair. 6. Colostomy placement for anal cancer. 7. Suprapubic catheter placement. 8. Hernia repair. 9. Varicose vein surgery. 10. Fistula repair. ASSESSMENT AND PLAN: 1. She had suffered a fall and had an L5 bilateral transverse process fracture and some sacral insufficiency fractures. They appear to be stable, but she will need to go to rehab. She is blind from retinopathy associated with her anal cancer. 2. History of anal surgery and anal cancer, status post reconstruction. Dr. Lima has been following while she is here. 3. History of rheumatoid arthritis. Continue her azathioprine. 4. 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 5. She did have sediment in the suprapubic catheter urine, but no sign of active infection. We did treat her with some antibiotics, but I am not sure if she has symptomatic infection. 6. History of constipation. This is resolved. She tolerated physical therapy, and she was able to go to [facility] on 12/08/2019. DISCHARGE MEDICATIONS: Aspirin 81 mg a day, Imuran which is azathioprine 150 mg p.o. daily and 100 mg at bedtime, calcium with vitamin D 1 daily, Vraylar 1.5 mg p.o. daily, and Cymbalta 90 mg at bedtime. I am going to give her the Lovenox 40 mg subcutaneously every 24 hours for another 2 weeks. She has Abiquiu 5 every 4 to 6 hours p.r.n. pain, Motrin 800 mg p.o. t.i.d., Synthroid 75 mcg a day, Robaxin 500 mg p.o. t.i.d., Singulair 10 mg a day, multivitamin which is Thera M Plus 1 a day, Ditropan 5 mg a day, MiraLAX 17 grams p.o. at bedtime, and vitamin B with vitamin C complex every day. cc: Nikos Stubbs MD
[2019-12-08] MEDS: ROCEPHIN 1 GM in NS 50 ML IV SCH (15:39)
[2019-12-08 15:51] VITALS: BP 142/61
[2019-12-08] MEDS: LOVENOX SUBQ SCH (16:18)
== END 2019-12-08 16:54 | DRG 543 ==
LOC: ED 11:44 → EDIPHOLD 16:53 → 4N 20:32
PROVIDERS: ATTEND Emergency Medicine